=== PATIENT | male | born 1975 | race Asian ===

== ENCOUNTER 2017-05-15 22:08 | Inpatient (IN) | payer OTHER ==
[~2017-05-15] VITALS: Ht 157.5 cm; Wt 47.7 kg
[2017-05-15] MEDS ORDERED: CEFEPIME 2GM/50 ML (PMX) 50 ML IVPB STA (22:13)
[2017-05-15] MEDS ORDERED: SODIUM CHLORIDE 0.9% 1L BAG IV* STA (22:13)
[2017-05-15] MEDS ORDERED: VANCOMYCIN 1 GM (PMX) 250 ML IVPB ONE (22:30)
--- NOTE | 2017-05-15 22:31 | ERA ---
ER Documentation Chief Complaint Date/Time DATE: 05/15/17 TIME: 22:27 Chief Complaint BIBA RA39, ALOC,LOW o2 SAT 82% room air at [facility] Patient is a 42-year-old male history of terminal brain cancer who sent from a [facility] for altered mental status, hypoxia, and fever was noted today. Timing was not specified. History is limited due to patient being unable to provide any details. Per report, the patient has been DNR/DNI, but his status may have been changed today. No documentation available at this time. ROS All systems reviewed and are negative except as per history of present illness. Allergies Allergies: Coded Allergies: No Known Allergy (Unverified , 05/15/17) PMhx/Soc Medical history: Recurrent glioblastoma multiforme A, mental retardation, blindness, Fungal brain infection, osteomyelitis Past surgical history: Craniotomy Social History: Unobtainable FmHx Unable to obtain Physical Exam Vitals Vital Signs Date Time Temp Pulse Resp B/P Pulse Ox O2 Delivery O2 Flow Rate FiO2 05/16/17 05:20 98 21 100 40 05/16/17 05:08 18 110/95 100 Mechanical Ventilator 05/16/17 04:45 98.1 18 111/93 100 Mechanical Ventilator 05/16/17 04:30 18 113/95 100 Mechanical Ventilator 05/16/17 04:15 18 106/93 100 Mechanical Ventilator 05/16/17 04:00 20 110/88 100 Mechanical Ventilator 05/16/17 03:21 97.9 20 112/87 100 Mechanical Ventilator 05/16/17 03:15 100 22 100 40 05/16/17 03:00 101 100 Mechanical Ventilator 05/16/17 02:30 98 14 106/89 100 Mechanical Ventilator 05/16/17 02:00 102 14 105/85 100 Mechanical Ventilator 05/16/17 01:55 117 18 100 60 05/16/17 01:15 99.3 115 25 123/83 100 Non Rebreather 10.0 05/16/17 00:57 116 24 116/89 100 Non Rebreather 10.0 05/16/17 00:56 99.3 113 25 145/111 100 Non Rebreather 10.0 05/16/17 00:26 117 28 143/114 100 Non Rebreather 10.0 05/16/17 00:07 117 34 124/92 100 Non Rebreather 10.0 05/15/17 22:50 124 37 94 Non Rebreather 10.0 05/15/17 22:43 99.5 120 37 109/87 Non Rebreather 10.0 05/15/17 22:43 Non Rebreather 10 05/15/17 22:13 99.5 123 22 105/67 94 Physical Exam Const: Lethargic, Nonverbal, not following commands, poor eye contact, cachectic Head: Atraumatic Eyes: Normal Conjunctiva, no pallor, no icterus. Corneal scarring of right eye. Left pupil midrange. ENT: Normal External Ears, Nose and Mouth. Dry mucous membranes Neck: Full range of motion..~ No meningismus. Resp: Tachypnea, clear to auscultation bilaterally, no wheezes, no rales Cardio: Tachycardia, regular rhythm, no murmurs Abd: Soft, non tender, non distended. Skin: No petechiae or rashes Back: No midline or flank tenderness Ext: No cyanosis, or edema Neur: Lethargic, Spontaneous movement of right arm, dense hemiparesis of left arm. Psych: Unable to assess Result Diagram: 05/15/17222905/15/172229 Results 24 hrs Laboratory Tests Test 05/15/17 22:13 05/15/17 22:30 05/16/17 00:05 05/16/17 00:58 Lactic Acid Level 5.4mmol/L 4.4mmol/L White Blood Count 5.910^3/ul Red Blood Count 5.3510^6/ul Hemoglobin 17.2g/dl Hematocrit 50.0% Mean Corpuscular Volume 93.5fl Mean Corpuscular Hemoglobin 32.1pg Mean Corpuscular Hemoglobin Concent 34.4g/dl Red Cell Distribution Width 14.3% Platelet Count 78262^3/UL Mean Platelet Volume 9.5fl Neutrophils % 80.3% Lymphocytes % 11.8% Monocytes % 6.3% Eosinophils % 0.0% Basophils % 0.9% Nucleated Red Blood Cells % 0.0/100WBC Neutrophils # 4.710^3/ul Lymphocytes # 0.710^3/ul Monocytes # 0.410^3/ul Eosinophils # 0.010^3/ul Basophils # 0.110^3/ul Nucleated Red Blood Cells # 0.010^3/ul Prothrombin Time 12.3Sec Prothrombin Time Ratio 1.0 INR International Normalized Ratio 0.91 Activated Partial Thromboplast Time 33.0Sec Urine Color NIGEL Urine Clarity SLIGHTLY CLOUDY Urine pH 5.0 Urine Specific [place] 1.020 Urine Ketones 2+mg/dL Urine Nitrite NEGATIVEmg/dL Urine Bilirubin 1+mg/dL Urine Urobilinogen 2+mg/dL Urine Leukocyte Esterase 2+Hina/ul Urine Microscopic RBC 5/HPF Urine Microscopic WBC 100/HPF Urine Bacteria FEW/HPF Urine Mucus MANY/HPF Urine Hemoglobin 1+mg/dL Urine Glucose NEGATIVEmg/dL Urine Total Protein 1+mg/dl Sodium Level 136mmol/L Potassium Level 3.8mmol/L Chloride Level 98mmol/L Carbon Dioxide Level 18mmol/L Anion Gap 24 Blood Urea Nitrogen 17mg/dl Creatinine 0.45mg/dl Glucose Level 108mg/dl Calcium Level 9.9mg/dl Total Bilirubin 0.8mg/dl Direct Bilirubin 0.00mg/dl Indirect Bilirubin 0.8mg/dl Aspartate Amino Transf (AST/SGOT) 29IU/L Alanine Aminotransferase (ALT/SGPT) 30IU/L Alkaline Phosphatase 196IU/L Troponin I 0.044ng/ml Total Protein 8.0g/dl Albumin 4.2g/dl Globulin 3.80g/dl Albumin/Globulin Ratio 1.10 Blood Gas Specimen Source Blood arterial Arterial Blood Date Drawn 05/16/2017 1:10:53 AM Arterial Blood pH (Temp corrected) 7.421 Arterial Blood pCO2 (Temp correct) 27.3mmhg Arterial Blood pO2 (Temp corrected) 243.4mmHG Arterial Blood HCO3 17.4mmol/L Arterial Blood Base Excess -5.4mmol/L Arterial Blood Oxygen Saturation 99.3mmHG Marcelino Test N/A Arterial Blood Gas Puncture Site LB Arterial Blood Carboxyhemoglobin 0.3% Arterial Blood Methemoglobin 0.4% Blood Gas A-a O2 Differential 442.3mmHg Oxyhemoglobin Percent 98.6% Total Hemoglobin 15.2g/dl Blood Gas Temperature 37.0C Blood Gas Modality MASK - NRB FiO2 100.0% Blood Gas Notified Whom MM Blood Gas Notified Time 05/16/2017 1:26:55 AM Test 05/16/17 02:28 05/16/17 02:50 Blood Gas Specimen Source Blood arterial Arterial Blood Date Drawn 05/16/2017 2:52:38 AM Arterial Blood pH (Temp corrected) 7.332 Arterial Blood pCO2 (Temp correct) 31.6mmhg Arterial Blood pO2 (Temp corrected) 237.8mmHG Arterial Blood HCO3 16.4mmol/L Arterial Blood Base Excess -8.2mmol/L Arterial Blood Oxygen Saturation 99.2mmHG Marcelino Test ACCEPTAB Arterial Blood Gas Puncture Site Left Radial Arterial Blood Carboxyhemoglobin 0.3% Arterial Blood Methemoglobin 0.5% Blood Gas A-a O2 Differential 155.2mmHg Oxyhemoglobin Percent 98.4% Total Hemoglobin 15.0g/dl Blood Gas Temperature 37.0C Blood Gas Respiration Rate 18.0 Blood Gas Actual Respiration Rate 20 Blood Gas Modality VENT - AC FiO2 60.0% Blood Gas Tidal Volume 400.0mL Blood Gas Low PEEP Setting 5.0cmH2O Blood Gas Inspiratory Pressure 20.0 Blood Gas Notified Whom AA Blood Gas Notified Time 05/16/2017 3:05:48 AM Lactic Acid Level 1.7mmol/L Current Medications Medications (Trade) Dose Ordered Sig/Earl Route PRN Reason Start Time Stop Time Status Last Admin Dose Admin Sodium Chloride 1550 ml 1,550 ml BOLUS OVER 2 HOURS STAT IV* 05/15/17 22:13 05/15/17 22:16 DC 05/15/17 22:51 Cefepime HCl 50 ml @ 100 mls/hr ONCE STAT IVPB 05/15/17 22:13 05/15/17 22:42 DC 05/15/17 23:48 Vancomycin HCl 250 ml @ 125 mls/hr ONCE ONCE IVPB 05/15/17 22:30 05/16/17 00:29 DC 05/16/17 01:25 Fluconazole (Diflucan 400 Mg/ NS (Pmx)) 200 ml @ 100 mls/hr ONCE ONCE IVPB 05/16/17 00:00 05/16/17 01:59 DC 05/16/17 03:15 Dexamethasone 10 mg 10 mg ONCE ONCE IV 05/16/17 00:00 05/16/17 00:01 DC 05/15/17 23:44 Sodium Chloride (Sodium Chloride Iv 3%) 100 ml @ 10 mls/min Q10M IV 05/16/17 00:00 05/16/17 01:00 DC 05/16/17 03:00 Succinylcholine Chloride (Anectine Syringe) 75 mg ONCE ONCE IV 05/16/17 01:00 05/16/17 01:01 DC Etomidate 15 mg 15 mg ONCE ONCE IV 05/16/17 01:00 05/16/17 01:01 DC Propofol 100 ml @ 0 mls/hr TITRATE ONCE IV 05/16/17 01:00 05/16/17 01:01 DC Sodium Chloride (NS) 1,000 ml @ 70 mls/hr [id number] IV 05/16/17 02:32 05/16/17 05:01 Acetaminophen (Tylenol Supp) 650 mg Q4H PRN [place] PAIN LEVEL 1-3 OR FEVER 05/16/17 03:00 Pantoprazole 40 mg 40 mg DAILY@06 IV 05/16/17 06:00 Midazolam HCl (Versed) 50 ml @ 1 mls/hr TITRATE IV 05/16/17 03:00 05/16/17 03:39 Vancomycin HCl VANCOMYCIN PER PHARMACY PER PROTOCOL XX 05/16/17 03:00 Cefepime HCl 50 ml @ 100 mls/hr Q12 IVPB 05/16/17 09:00 Fluconazole 200 ml @ 100 mls/hr Q24H IVPB 05/16/17 03:00 Vancomycin HCl/ Sodium Chloride (Vancocin/NS) 150 ml @ 75 mls/hr Q8H IVPB 05/16/17 09:00 Procedures/MDM EKG read by me: Time 2240, rate 127 Rhythm: Sinus tachycardia [place]: Left axis deviation Intervals: Prolonged QTC ST-T waves: ST depression in inferior and lateral leads Ectopy: No Q-waves: No Impression: ST depression suggestive of ischemia Endotracheal Intubation by me: Pre assessment performed. Pre-oxygenation performed with 100% oxygen RSI: Performed w/o complication or hypoxic events. Medications as ordered, etomidate 15 mg, succinylcholine 75 mg Blade: Mac 4 ET Tube: 7.5 cm Depth: 23 cm at the lip Intubation confirmed by colorimetric CO2, equal breath sounds, quiet over the stomach. Chest X-ray 1V Interpreted by me: cm above the sydni ET tube. Normal soft tissue, No pneumothorax. MDM: Patient is a 42-year-old male with known glioblastoma multiforma who presents to the ER with altered mental status and fever. He is found to have signs of vasogenic edema with herniation on head CT. He was given a dose of hypertonic saline and Decadron. I discussed the case with Dr. Cho, neurosurgery, who will see the patient. The patient is not likely an operative candidate at this time. Septic workup was initiated. Blood and urine cultures were sent. UA was consistent with UTI and chest x-ray suggested possible multifocal pneumonia. The patient was given weight-based IV fluids and broad- spectrum antibiotics. The patient was noted to have significant tachypnea and oxygen requirement of greater than 10 L/min. He also was not protecting his airway well and had large number of secretions. I had extensive discussion with family regarding CODE STATUS, and they initially wanted him to be DNR/DNI, but they changed their mind and made him full code. I emphasized that the patient had a very poor prognosis and would likely not be able to come off of ventilator, but they stated that they wanted the patient to get full treatment. The patient was therefore intubated for respiratory distress and poor airway protection. He will be admitted to the ICU for further workup and care. I will attempt to mildly hyperventilate him with a target pCO2 of 35. Critical Care Time: 36 minutes Treatments/Evaluations: Close monitoring and treatment of unstable vital signs, cardiorespiratory, and neurologic status, while maintaining tight balance of fluid, respiratory, and cardiac interventions. This time includes discussing the case with the patient and the patient's family. This time does not include all procedures stated elsewhere in this record. This time also includes reviewing old records, labs and radiological studies. This time includes examining and re-examining the patient. Additionally, this time also includes arranging care with admitting and consulting physicians. Departure Diagnosis: Primary Impression: Severe sepsis Additional Impressions: Respiratory distress Pneumonia Qualified Code: J18.9 - Pneumonia due to infectious organism, unspecified laterality, unspecified part of lung UTI (urinary tract infection) Qualified Code: N39.0 - Urinary tract infection without hematuria, site unspecified Cerebral herniation GBM (glioblastoma multiforme) Altered mental status Qualified Code: R40.2431 - [place] coma scale total score 3-8, in the field ( EMT or ambulance) Condition: Serious GINA CUMMINS MD May 15, 2017 22:31
[2017-05-15 22:58] LABS: BASOPHIL # 0.1 10^3/ul (0.0-0.1); BASOPHILS % 0.9 % (0.0-2.0); HEMOGLOBIN 17.2 g/dl (14.0-18.0); LYMPHOCYTES # 0.7 10^3/ul (0.8-2.9); LYMPHOCYTES % 11.8 % (15.0-51.0); MEAN CORPUSCULAR HEMOGLOBIN 32.1 pg (29.0-33.0); MEAN CORPUSCULAR HGB CONC 34.4 g/dl (32.0-37.0); MEAN CORPUSCULAR VOLUME 93.5 fl (82.0-101.0); MEAN PLATELET VOLUME 9.5 fl (7.4-10.4); MONOCYTE # 0.4 10^3/ul (0.3-0.9); MONOCYTES % 6.3 % (0.0-11.0); NEUTROPHIL # 4.7 10^3/ul (1.6-7.5); NEUTROPHILS % 80.3 % (39.0-77.0); PLATELET COUNT 604 10^3/UL (140-415); RED BLOOD COUNT 5.35 10^6/ul (4.70-6.10); RED CELL DISTRIBUTION WIDTH 14.3 % (11.5-14.5); WHITE BLOOD COUNT 5.9 10^3/ul (4.8-10.8)
[2017-05-15 23:22] LABS: ALBUMIN 4.2 g/dl (3.3-4.9); ALBUMIN/GLOBULIN RATIO 1.1; BILIRUBIN,INDIRECT 0.8 mg/dl (0-1.1); BILIRUBIN,TOTAL 0.8 mg/dl (0.2-1.3); CALCIUM 9.9 mg/dl (8.4-10.2); CREATININE 0.45 mg/dl (0.61-1.24); POTASSIUM 3.8 mmol/L (3.5-5.1)
[2017-05-15 23:33] LABS: TROPONIN-I 0.044 ng/ml (0.00-0.12)
[2017-05-15 23:38] LABS: INR 0.91; PROTIME 12.3 Sec (12.2-14.2)
--- NOTE | 2017-05-15 23:39 | RADRPT ---
PROCEDURE: Noncontrast CT Head. CLINICAL INDICATION: Pain. TECHNIQUE: Noncontrast CT of the head was obtained. The administered radiation dose was CTDI vol = 45 mGy, DLP = 810 mGy-cm. One or more of the following dose reduction techniques were used: automate d exposure control, adjustment of the mA and/or kV according to patient size and/or use of iterative reconstruction technique. COMPARISON: No pertinent prior examinations were submitted for comparison. FINDINGS: Prior right pterional craniectomy is noted with placement of a mesh. Extensive vasogenic edema is se en throughout the right supratentorial white matter. Some wallerian degeneration or additional edema extends into the brainstem. There is mass effect with subfalcine herniation. This causes 12 mm of midline shift to the left. The re is enlargement of the left lateral and third ventricles with some effacement of the right lateral ventricle. This is presumably due to ventricular entrapment. There is no evidence of acute intracranial hemorrhage. There is no loss of the tadeo-white differenti ation to suggest an acute territorial infarct. The orbits are within normal limits. The paranasal sinuses and mastoid air cells are without fluid. No destructive osseous lesion is identified. IMPRESSION: Extensive right hemispheric vasogenic edema with associated subfalcine herniation and ventricular en trapment presumably due to underlying tumor. Correlation with any known history or previous examinat ions is recommended. MRI of the brain with contrast may be indicated. Findings were discussed with Dion Hampton at approximately 05/15/2017 11:35:44 PM. RPTAT: HIKT .Marty Yee MD, Date Time Electronically viewed and signed by .Marty Yee MD, MD on 05/15/2017 23:39 .T/
--- NOTE | 2017-05-15 23:47 | RADRPT ---
PROCEDURE: Portable chest x-ray. CLINICAL INDICATION: Sepsis. TECHNIQUE: Portable AP view of the chest. COMPARISON: None. FINDINGS: There are patchy bilateral perihilar opacities. The cardiac silhouette is magnified. No pleural ef fusion is seen. There is no pneumothorax. Surgical clips project over the superomedial right chest . IMPRESSION: 1. Patchy bilateral perihilar opacities, possibly representing pulmonary edema or multifocal pneumo surjit. RPTAT: HTAR .Hermes Collins MD, MD Date Time Electronically viewed and signed by .Hermes Collins MD, MD on 05/15/2017 23:47 .R/
[2017-05-15 23:55] LABS: ADD UMIC YES; UR ASCORBIC ACID NEGATIVE (NEGATIVE); UR BACTERIA FEW /HPF (NONE SEEN); UR BILIRUBIN (Dip) 1+ mg/dL (NEGATIVE); UR BLOOD (Dip) 1+ mg/dL (NEGATIVE); UR CLARITY SLIGHTLY CLOUDY (CLEAR); UR COLOR AMBER (YELLOW); UR GLUCOSE (Dip) NEGATIVE (NEGATIVE); UR KETONES (Dip) 2+ mg/dL (NEGATIVE); UR LEUKOCYTE ESTERASE (Dip) 2+ Leu/ul (NEGATIVE); UR MUCUS MANY /HPF (NONE SEEN); UR NITRITE (Dip) NEGATIVE (NEGATIVE); UR RBC 5 /HPF (0-5); UR TOTAL PROTEIN (Dip) 1+ mg/dl (NEGATIVE); UR UROBILINOGEN (Dip) 2+ mg/dL (NEGATIVE)
[2017-05-16] VITALS (29 sets, daily range): BP systolic 97–123; BP diastolic 74–98; PULSE 95–115; RESP 6–40; TEMP 97; Ht 157.5 cm; Wt 47.7 kg
[2017-05-16] MEDS ORDERED: DEXAMETHASONE 10 MG/ML 1 ML INJ IV ONE
[2017-05-16] MEDS ORDERED: FLUCONAZOLE 400 MG/NS (PMX) 200 ML IVPB ONE
[2017-05-16] MEDS: NACL 3% 100 ML IV SCH ×7 (00:10→03:00)
[2017-05-16] MEDS ORDERED: ETOMIDATE 20 MG INJ IV ONE (01:00)
[2017-05-16] MEDS ORDERED: PROPOFOL 100 ML IV ONE (01:00)
[2017-05-16] MEDS ORDERED: SUCCINYLCHOLINE CHLORIDE 100 MG/5 ML SYG IV ONE (01:00)
[2017-05-16 01:30] LABS: AADO2 Arterial 442.3 mmHg (7.0-24.0); Arterial Base Excess -5.4 mmol/L (-3.0-3); Arterial COHb 0.3 % (0.0-3.0); Arterial Fraction of Oxyhgb 98.6 % (93.0-99.0); Arterial HCO3 17.4 mmol/L (22.0-26.0); Arterial MetHb 0.4 % (0.0-1.5); Arterial Total Hemglobin 15.2 g/dl (12.0-18.0); MODE MASK - NRB
[2017-05-16] MEDS ORDERED: ACETAMINOPHEN 650 MG SUPP PR PRN (03:00)
[2017-05-16] MEDS: FLUCONAZOLE 400 MG/NS (PMX) 200 ML IVPB SCH (03:00)
[2017-05-16] MEDS ORDERED: VANCOMYCIN IV PER PHARMACY XX SCH (03:00)
[2017-05-16 03:07] LABS: AADO2 Arterial 155.2 mmHg (7.0-24.0); Allen Test ACCEPTAB; Arterial Base Excess -8.2 mmol/L (-3.0-3); Arterial COHb 0.3 % (0.0-3.0); Arterial Fraction of Oxyhgb 98.4 % (93.0-99.0); Arterial HCO3 16.4 mmol/L (22.0-26.0); Arterial MetHb 0.5 % (0.0-1.5); MODE VENT - AC
[2017-05-16] MEDS: MIDAZOLAM (DRIP) 50 mg/50 mL 50 ML IV SCH (03:39)
--- NOTE | 2017-05-16 03:51 | RADRPT ---
PROCEDURE: XR Chest. CLINICAL INDICATION: Post intubation, NG tube placement TECHNIQUE: AP Portable chest. COMPARISON: 05/15/2017 FINDINGS: The endotracheal tube is 4 cm above the sydni. The nasogastric tube is in the proximal stomach with the side port near the GE junction.. The cardiomediastinal silhouette is normal. The aorta is normal. The lungs are hyperinflated. No pne umothorax is seen. Bilateral perihilar opacities are similar in appearance. The costophrenic angles are blunted. The osseous structures are intact. IMPRESSION: ET tube in satisfactory position. NG tube sideport near the GE junction. Bilateral perihilar opacities and trace pleural effusions, no significant change. Physician Caleb Date Time Electronically viewed and signed by Physician Caleb on 05/16/2017 03:51 CS/
[2017-05-16] MEDS: SOD CHLORIDE 0.9% 1,000 ML IV SCH ×2 (05:01→16:10)
[2017-05-16] MEDS: PANTOPRAZOLE 40 MG INJ IV SCH (07:53)
[2017-05-16] MEDS: CEFEPIME 2GM/50 ML (PMX) 50 ML IVPB SCH ×2 (08:36→22:50)
[2017-05-16] MEDS: VANCOMYCIN 750 MG in SOD CHLORIDE 0.9% 150 ML IVPB SCH ×2 (09:00→18:24)
--- NOTE | 2017-05-16 09:09 | HP ---
Date/Time of Note Date/Time of Note DATE: 05/16/17 TIME: 08:53 Assessment/Plan VTE Prophylaxis VTE Prophylaxis Intervention: SCD's Lines/Catheters Urinary Cath still in place: Yes Reason Cath still needed: terminal illness/intractable pain Assessment/Plan Chief Complaint/Hosp Course This is a 42-year-old male being admitted to the ICU floor for: #1 Ventilatory dependent respiratory failure: Multifactorial secondary to underlying pneumonia and GBM. Continue respiratory support serial ABGs vent settings as per pulmonary. #2 Septic shock secondary to underlying pneumonia and UTI. Await cultures. Broad-spectrum antibiotics. IV fluid hydration. Serial lactates. Initial lactate 5.4. #3 Glioblastoma multiforme. CAT scan showed Extensive right hemispheric vasogenic edema with associated subfalcine herniation and ventricular entrapment presumably due to underlying tumor. Correlation with any known history or previous examinations is recommended. MRI of the brain with contrast may be indicated. Patient is unlikely a surgical candidate, neurosurgery consulted via the ED will await recommendations. #4 aspiration syndrome: Patient currently intubated, aspiration precautions. #5 Pneumonia: patient is an a congregate facility, will treat with broad spectrum abx as per #2 #6 UTI: await cultures, currently on abx as per #2. #5 mental retardation: Unable to assess secondary to patient being intubated. #6 DVT and GI prophylaxis: SCDs, Protonix Further treatment strategy will be implemented as per the clinical course. Patient will likely benefit from a palliative care consult as well as a family meeting. Patient's overall prognosis is very poor and I do feel that aggressive treatment will be futile. Patient most likely will benefit from being on hospice care, and at the minimum being a DNR. Problems: HPI/ROS Admit Date/Time Admit Date/Time Hx of Present Illness cc: ams, hypoxia, fver. Patient is a 42-year-old male history of terminal brain cancer who [facility] status, hypoxia, and fever was noted today. History was obtained from the ED physician and ER documentation. History is limited due to patient being unable to provide any details. The following was obtained from the ED physician documentation patient is a 42- year-old male with known glioblastoma multiforma who presents to the ER with altered mental status and fever. He is found to have signs of vasogenic edema with herniation on head CT. He was given a dose of hypertonic saline and Decadron. I discussed the case with Dr. Cho, neurosurgery, who will see the patient. The patient is not likely an operative candidate at this time. Septic workup was initiated. Blood and urine cultures were sent. UA was consistent with UTI and chest x-ray suggested possible multifocal pneumonia. Antibiotic started. The patient was noted to have significant tachypnea and oxygen requirement of greater than 10 L/min. He also was not protecting his airway well and had large number of secretions. The ED physician had an extensive discussion with family regarding CODE STATUS, and they initially wanted him to be DNR/DNI, but they changed their mind and made him full code. It was emphasized that the patient had a very poor prognosis and would likely not be able to come off of ventilator, but they stated that they wanted the patient to get full treatment. The patient was therefore intubated for respiratory distress and poor airway protection. Allergies: NKDA Medications: See MAR ROS Subjective hx not possible: pt non-verbal, pt critical PMH/Family/Social Past Medical History Glioblastoma multiform, aspiration syndrome, left cataract, right blindness, left-sided weakness Past Surgical History Craniotomy, titanium cranioplasty Family History Significant Family History: other (Unknown secondary to patient not being able to provide history) Social History Unknown secondary to patient not being able to provide history Smoking Status: Never smoker Exam/Review of Systems Vital Signs Vitals Vital Signs Date Time Temp Pulse Resp B/P Pulse Ox O2 Delivery O2 Flow Rate FiO2 05/16/17 08:13 96.2 98 18 100/86 100 Mechanical Ventilator 05/16/17 05:20 40 05/16/17 01:15 10.0 Intake and Output 05/15/17 05/15/17 05/16/17 15:00 23:00 07:00 Output Total 200 ml Balance -200 ml Exam Exam General: Patient is obtunded, on the ventilator, nonresponsive. Patient is severely frail and cachectic appearing HEENT: Right sided school sutures noted, ET tube in place, Corneal scarring of right eye. Left pupil midrange Neck: Supple. Lungs: Coarse breath sounds throughout bilateral lung jo Heart: Sinus tachycardia Abdomen: Soft , nontender, nondistended , bowel sounds are present. No guarding no rebound tenderness , Extremities: Normal to inspection, no edema no cyanosis Neurologic: Unable to assess as patient is intubated and obtunded, some movement of the right arm seen however now able to assess neurological exam secondary to patient condition. Additional Comments EKG read by me: Time 2240, rate 127 Rhythm: Sinus tachycardia [place]: Left axis deviation Intervals: Prolonged QTC ST-T waves: ST depression in inferior and lateral leads Ectopy: No Q-waves: No Impression: ST depression suggestive of ischemia As per ED physician documentation PROCEDURE: XR Chest. CLINICAL INDICATION: Post intubation, NG tube placement TECHNIQUE: AP Portable chest. COMPARISON: 05/15/2017 FINDINGS: The endotracheal tube is 4 cm above the sdyni. The nasogastric tube is in the proximal stomach with the side port near the GE junction.. The cardiomediastinal silhouette is normal. The aorta is normal. The lungs are hyperinflated. No pneumothorax is seen. Bilateral perihilar opacities are similar in appearance. The costophrenic angles are blunted. The osseous structures are intact. IMPRESSION: ET tube in satisfactory position. NG tube sideport near the GE junction. Bilateral perihilar opacities and trace pleural effusions, no significant change. Physician Caleb Date Time Electronically viewed and signed by Physician Caleb on 05/16/2017 03: 51 CS/ CC: DION CUMMINS MD PROCEDURE: Noncontrast CT Head. CLINICAL INDICATION: Pain. TECHNIQUE: Noncontrast CT of the head was obtained. The administered radiation dose was CTDI vol = 45 mGy, DLP = 810 mGy-cm. One or more of the following dose reduction techniques were used: automated exposure control, adjustment of the mA and/or kV according to patient size and/or use of iterative reconstruction technique. COMPARISON: No pertinent prior examinations were submitted for comparison. FINDINGS: Prior right pterional craniectomy is noted with placement of a mesh. Extensive vasogenic edema is seen throughout the right supratentorial white matter. Some wallerian degeneration or additional edema extends into the brainstem. There is mass effect with subfalcine herniation. This causes 12 mm of midline shift to the left. There is enlargement of the left lateral and third ventricles with some effacement of the right lateral ventricle. This is presumably due to ventricular entrapment. There is no evidence of acute intracranial hemorrhage. There is no loss of the tadeo-white differentiation to suggest an acute territorial infarct. The orbits are within normal limits. The paranasal sinuses and mastoid air cells are without fluid. No destructive osseous lesion is identified. IMPRESSION: Extensive right hemispheric vasogenic edema with associated subfalcine herniation and ventricular entrapment presumably due to underlying tumor. Correlation with any known history or previous examinations is recommended. MRI of the brain with contrast may be indicated. Findings were discussed with Dion Hampton at approximately 05/15/2017 11: 35:44 PM. RPTAT: HIKT .Marty Yee MD, MD Date Time Electronically viewed and signed by .Marty Yee MD, MD on 05/15/2017 23:39 .T/ CC: DION CUMMINS MD Labs Result Diagram: 05/15/17222905/15/172229 Medications Medications Current Medications Sodium Chloride (NS) 1,000 ml @ 70 mls/hr [id number] IV Last administered on 05/16 05:01; Admin Dose 70 MLS/HR; Start 05/16/17 at 02:32 Acetaminophen (Tylenol Supp) 650 mg Q4H PRN [place] PAIN LEVEL 1-3 OR FEVER; Start 05/16/17 at 03:00 Pantoprazole 40 mg 40 mg DAILY@06 IV Last administered on 05/16/17 07:53; Admin Dose 40 MG; Start 05/16/17 at 06:00 Midazolam HCl 50 ml @ 1 mls/hr TITRATE IV Last administered on 05/16/17 03:39 ; Admin Dose 1 MLS/HR; Start 05/16/17 at 03:00 Cefepime HCl 50 ml @ 100 mls/hr Q12 IVPB Last administered on 05/16/17 08:36 ; Admin Dose 100 MLS/HR; Start 05/16/17 at 09:00 Fluconazole 200 ml @ 100 mls/hr Q24H IVPB ; Start 05/16/17 at 03:00 Vancomycin HCl/ Sodium Chloride (Vancocin/NS) 150 ml @ 75 mls/hr Q8H IVPB ; Start 05/16/17 at 09:00 [place] DOLL May 16, 2017 09:03
[2017-05-16] MEDS ORDERED: DOCU-159 PO (10:59)
[2017-05-16] MEDS ORDERED: BACITUD TOP (11:01)
[2017-05-16] MEDS ORDERED: PANT40TA4 PO (11:03)
[2017-05-16] MEDS ORDERED: SIMV10TA PO (11:03)
[2017-05-16] MEDS ORDERED: ASPI-664 PO (11:03)
[2017-05-16] MEDS ORDERED: DEXA2TAB5 PO (11:04)
[2017-05-16] MEDS ORDERED: PHEN200C PO (11:08)
[2017-05-16] MEDS ORDERED: LEVE-5 PO (11:10)
[2017-05-16] MEDS ORDERED: HYDR-906 PO (11:12)
[2017-05-16] MEDS: DEXAMETHASONE 4 MG/ML 1 ML INJ IV SCH ×2 (12:34→17:58)
--- NOTE | 2017-05-16 13:14 | CONS ---
DATE OF ADMISSION: 05/16/2017 DATE OF CONSULTATION: 05/16/2017 INFECTIOUS DISEASE CONSULTATION REASON FOR CONSULTATION: Antibiotic management. HISTORY OF PRESENT ILLNESS: Shane Bass is a 42-year-old male with a history of terminal brain cancer who was sent to the emergency room with altered mental status, hypoxia, and fever. The patient has glioblastoma multiforme, presented to the ER with altered mental status and fever. He has vasogenic edema with herniation on head CT. Patient was given a dose of hypertonic saline and Decadron. The case was discussed with Dr. Cho, the neurosurgeon, but it does not seem as is he is an operative candidate at this point. Septic workup was initiated. Blood and urine cultures were sent. A chest x-ray was done, which suggested multifocal pneumonia. Patient was tachycardic, was placed on oxygen. He had increased secretions. He was initially a DNR, but the family changed their mind and made him a full code. He was, therefore, intubated for respiratory distress and poor airway protection. PAST MEDICAL HISTORY: Includes glioblastoma multiforme, aspiration pneumonia, left cataract surgery, right eye blindness, left-sided weakness. He had a craniotomy and a titanium cranioplasty. DIAGNOSTIC DATA: On admission, a chest x-ray was done, which showed ET in satisfactory position. He has an NG tube near the GE junction, bilateral perihilar opacities, trace pleural effusion. A CT scan showed extensive right hemispheric vasogenic edema with associated subfalcine herniation and ventricular entrapment, presumably due to the underlying tumor. His white count was 5.9, hemoglobin 17.2 and hematocrit 50, platelet count 604,000. BUN 17 and creatinine 0.45. Lactic acid is 5.4 and 4.4. Urine is positive for 2+ leukocyte esterase and 100 white cells per high-power field, consistent with urinary tract infection. Patient was begun on vancomycin and cefepime as well as fluconazole. PAST MEDICAL HISTORY: Operations as outlined. FAMILY HISTORY: Noncontributory. SOCIAL HISTORY: He does not smoke, drink, or abuse drugs. ALLERGIES: NONE TO PENICILLIN, SULFA, OR FOODS. MEDICATION: Per chart. REVIEW OF SYSTEMS: As per HPI. PHYSICAL EXAMINATION: GENERAL: Patient is an cachectic-appearing male who is intubated on a respirator. VITAL SIGNS: Stable. He is afebrile. SKIN: Without generalized rash. HEENT: He has an ET tube and an NG tube. He has right corneal scarring. Left pupil is mid-range. NECK: Supple. Lymph nodes nonpalpable. CHEST: Decreased breath sounds at the bases. HEART: Without murmur or gallop. ABDOMEN: Soft, nontender, without organosplenomegaly or masses. EXTREMITIES: Without cyanosis, clubbing, or edema. RECTAL/GENITAL: Exams deferred. NEUROLOGICAL: We are unable to assess as he is intubated and obtunded. IMPRESSION AND PLAN: The patient is an unfortunate, 42-year-old male with a fatal disease, glioblastoma multiforme. He was intubated at the request of the family. He has a clear-cut urinary tract infection and is a good candidate for aspiration pneumonia, and that is why he was intubated. He has urinary tract infection (UTI) with probable septic shock secondary to this as well as possible pneumonia. He has bilateral perihilar opacities. We will continue vancomycin and cefepime. I will dictate my findings to the hospitalist. Dictated By: Yony Shell MD JD/farida/[facility] /Document#: [id number]
[2017-05-16] MEDS ORDERED: PROPOFOL 100 ML ONE (17:47)
[2017-05-16] MEDS: PROPOFOL 100 ML IV SCH (18:00)
--- NOTE | 2017-05-16 22:22 | CONS ---
Date/Time of Note Date/Time of Note DATE: 05/16/17 TIME: 22:06 Assessment/Plan Assessment/Plan Problems: (1) GBM (glioblastoma multiforme) Status: Acute Comment: Unfortunate 42 year old with GBM, recurrent, complicated by fungal infection, now presenting with UTI/URI and altered MS 2 to cerebral edema. I spoke via telephone with the patient's sister Emmy, who is DPOA, regarding the imaging findings and patient's neurologic status. She understands neurologic prognosis is poor. She would like to continue with maximal medical treatments, including supportive ICU care, but is refusing any further surgical intervention. I spoke with the patient's primary neurosurgeon (Dr. Yunior Stinson) who stated that the patient's family had previously also refused further surgery (including both tumor removal and VPS). Since patient's family is refusing surgical intervention, I will follow as needed. Thank you. Consultation Date/Type/Reason Admit Date/Time Date of Consultation: May 16, 2017 Type of Consultation: neurosurgery Reason for Consultation recurrent brain tumor Hx of Present Illness 42 year old male with developmental delay and hx of craniotomy at [facility] in November 2016, complicated by wound infection and removal of bone flap in February. He has completed XRT and is getting temodar. He was transferred to ER from SNF for hypoxia and altered level of consciousness... CT in ER shows massive tumor with midline shift and uncal herniation. Social History Smoking Status: Never smoker Exam/Review of Systems Vital Signs Vitals Vital Signs Date Time Temp Pulse Resp B/P Pulse Ox O2 Delivery O2 Flow Rate FiO2 05/16/17 17:32 101 28 98 30 05/16/17 17:00 104/86 05/16/17 16:30 Mechanical Ventilator 05/16/17 16:00 97.3 05/16/17 01:15 10.0 Intake and Output 05/15/17 05/15/17 05/16/17 15:00 23:00 07:00 Output Total 200 ml Balance -200 ml Exam [id number] localizes R UE flaccid on left R eye opaque Left pupil 2mm min reactive Results Result Diagram: 05/15/17222905/15/172229 Results 24 hrs Laboratory Tests Test 05/15/17 22:13 05/15/17 22:30 05/16/17 00:05 05/16/17 00:58 Lactic Acid Level 5.4 *H 4.4 *H White Blood Count 5.9 Red Blood Count 5.35 Hemoglobin 17.2 Hematocrit 50.0 Mean Corpuscular Volume 93.5 Mean Corpuscular Hemoglobin 32.1 Mean Corpuscular Hemoglobin Concent 34.4 Red Cell Distribution Width 14.3 Platelet Count 604 H Mean Platelet Volume 9.5 Neutrophils % 80.3 H Lymphocytes % 11.8 L Monocytes % 6.3 Eosinophils % 0.0 Basophils % 0.9 Nucleated Red Blood Cells % 0.0 Neutrophils # 4.7 Lymphocytes # 0.7 L Monocytes # 0.4 Eosinophils # 0.0 Basophils # 0.1 Nucleated Red Blood Cells # 0.0 Prothrombin Time 12.3 Prothrombin Time Ratio 1.0 INR International Normalized Ratio 0.91 Activated Partial Thromboplast Time 33.0 Urine Color NIGEL Urine Clarity SLIGHTLY CLOUDY A Urine pH 5.0 Urine Specific [place] 1.020 Urine Ketones 2+ H Urine Nitrite NEGATIVE Urine Bilirubin 1+ H Urine Urobilinogen 2+ H Urine Leukocyte Esterase 2+ H Urine Microscopic RBC 5 Urine Microscopic WBC 100 H Urine Bacteria FEW A Urine Mucus MANY A Urine Hemoglobin 1+ H Urine Glucose NEGATIVE Urine Total Protein 1+ H Sodium Level 136 Potassium Level 3.8 Chloride Level 98 Carbon Dioxide Level 18 L Anion Gap 24 H Blood Urea Nitrogen 17 Creatinine 0.45 L Glucose Level 108 Calcium Level 9.9 Total Bilirubin 0.8 Direct Bilirubin 0.00 Indirect Bilirubin 0.8 Aspartate Amino Transf (AST/SGOT) 29 Alanine Aminotransferase (ALT/SGPT) 30 Alkaline Phosphatase 196 H Troponin I 0.044 Total Protein 8.0 Albumin 4.2 Globulin 3.80 H Albumin/Globulin Ratio 1.10 Blood Gas Specimen Source Blood arterial Arterial Blood Date Drawn 05/16/2017 1:10:53 AM Arterial Blood pH (Temp corrected) 7.421 Arterial Blood pCO2 (Temp correct) 27.3 L Arterial Blood pO2 (Temp corrected) 243.4 H Arterial Blood HCO3 17.4 L Arterial Blood Base Excess -5.4 L Arterial Blood Oxygen Saturation 99.3 H Marcelino Test N/A Arterial Blood Gas Puncture Site LB Arterial Blood Carboxyhemoglobin 0.3 Arterial Blood Methemoglobin 0.4 Blood Gas A-a O2 Differential 442.3 H Oxyhemoglobin Percent 98.6 Total Hemoglobin 15.2 Blood Gas Temperature 37.0 Blood Gas Modality MASK - NRB FiO2 100.0 Blood Gas Notified Whom MM Blood Gas Notified Time 05/16/2017 1:26:55 AM Test 05/16/17 02:28 05/16/17 02:50 Blood Gas Specimen Source Blood arterial Arterial Blood Date Drawn 05/16/2017 2:52:38 AM Arterial Blood pH (Temp corrected) 7.332 L Arterial Blood pCO2 (Temp correct) 31.6 L Arterial Blood pO2 (Temp corrected) 237.8 H Arterial Blood HCO3 16.4 L Arterial Blood Base Excess -8.2 L Arterial Blood Oxygen Saturation 99.2 H Marcelino Test ACCEPTAB Arterial Blood Gas Puncture Site Left Radial Arterial Blood Carboxyhemoglobin 0.3 Arterial Blood Methemoglobin 0.5 Blood Gas A-a O2 Differential 155.2 H Oxyhemoglobin Percent 98.4 Total Hemoglobin 15.0 Blood Gas Temperature 37.0 Blood Gas Respiration Rate 18.0 Blood Gas Actual Respiration Rate 20 Blood Gas Modality VENT - AC FiO2 60.0 Blood Gas Tidal Volume 400.0 Blood Gas Low PEEP Setting 5.0 Blood Gas Inspiratory Pressure 20.0 Blood Gas Notified Whom AA Blood Gas Notified Time 05/16/2017 3:05:48 AM Lactic Acid Level 1.7 Medications Medications Current Medications Acetaminophen (Tylenol Supp) 650 mg Q4H PRN [place] PAIN LEVEL 1-3 OR FEVER; Start 05/16/17 at 03:00 Pantoprazole 40 mg 40 mg DAILY@06 IV Last administered on 05/16/17 07:53; Admin Dose 40 MG; Start 05/16/17 at 06:00 Midazolam HCl 50 ml @ 1 mls/hr TITRATE IV Last administered on 05/16/17 03:39 ; Admin Dose 1 MLS/HR; Start 05/16/17 at 03:00 Cefepime HCl 50 ml @ 100 mls/hr Q12 IVPB Last administered on 05/16/17 08:36 ; Admin Dose 100 MLS/HR; Start 05/16/17 at 09:00 Fluconazole 200 ml @ 100 mls/hr Q24H IVPB ; Start 05/16/17 at 03:00 Vancomycin HCl/ Sodium Chloride (Vancocin/NS) 150 ml @ 75 mls/hr Q8H IVPB Last administered on 05/16/17 18:24; Admin Dose 75 MLS/HR; Start 05/16/17 at 09 :00 Dexamethasone (Decadron) 4 mg Q6 IV Last administered on 05/16/17 17:58; Admin Dose 4 MG; Start 05/16/17 at 12:00 Miscellaneous Information VANCOMYCIN TROUGH AT 0000 ONCE ONCE XX ; Start 05/17/17 at 00:00; Stop 05/17/17 at 00:01 Propofol (Diprivan) 100 ml @ 1.431 mls/ hr Q12H IV Last administered on 18:00; Admin Dose 8.586 MLS/HR; Start 05/16/17 at 18:00 AIXA LEMONS MD May 16, 2017 22:16
[2017-05-17] VITALS (60 sets, daily range): BP systolic 100–143; BP diastolic 77–103; PULSE 71–102; RESP 18–26
[2017-05-17] MEDS: DEXAMETHASONE 4 MG/ML 1 ML INJ IV SCH ×5 (01:47→21:17)
[2017-05-17] MEDS: VANCOMYCIN 750 MG in SOD CHLORIDE 0.9% 150 ML IVPB SCH ×2 (04:28→09:05)
[2017-05-17] MEDS: FLUCONAZOLE 400 MG/NS (PMX) 200 ML IVPB SCH (05:38)
[2017-05-17 06:07] LABS: HEMATOCRIT 36.6 % (42.0-52.0); HEMOGLOBIN 11.8 g/dl (14.0-18.0); LYMPHOCYTES # 0.6 10^3/ul (0.8-2.9); LYMPHOCYTES % 6.7 % (15.0-51.0); MEAN CORPUSCULAR HEMOGLOBIN 31.3 pg (29.0-33.0); MEAN CORPUSCULAR HGB CONC 32.2 g/dl (32.0-37.0); MEAN CORPUSCULAR VOLUME 97.1 fl (82.0-101.0); MEAN PLATELET VOLUME 11.2 fl (7.4-10.4); MONOCYTE # 0.4 10^3/ul (0.3-0.9); MONOCYTES % 4.2 % (0.0-11.0); NEUTROPHIL # 7.9 10^3/ul (1.6-7.5); NEUTROPHILS % 88.5 % (39.0-77.0); POSITIVE DIFF @See below; RED BLOOD COUNT 3.77 10^6/ul (4.70-6.10); RED CELL DISTRIBUTION WIDTH 14.6 % (11.5-14.5); WHITE BLOOD COUNT 8.9 10^3/ul (4.8-10.8)
[2017-05-17] MEDS: PROPOFOL 100 ML IV SCH ×2 (06:16→17:44)
[2017-05-17] MEDS: PANTOPRAZOLE 40 MG INJ IV SCH (06:16)
[2017-05-17 06:30] LABS: PLATELET COUNT 236 10^3/UL (140-415)
[2017-05-17 06:43] LABS: CREATININE 0.35 mg/dl (0.61-1.24); POTASSIUM 4.2 mmol/L (3.5-5.1)
[2017-05-17] MEDS: CEFEPIME 2GM/50 ML (PMX) 50 ML IVPB SCH (09:05)
[2017-05-17] MEDS ORDERED: MEROPENEM 2 GM in SOD CHLORIDE 0.9% 100 ML IVPB SCH (12:00)
[2017-05-17] MEDS: MEROPENEM 500MG/50 ML (PMX) 50 ML IVPB SCH ×2 (12:17→21:17)
[2017-05-17] MEDS ORDERED: LIDOCAINE 1% (MPF) 5 ML VIAL SC ONE (13:00)
--- NOTE | 2017-05-17 13:00 | PN ---
DATE: 05/17/2017 SUBJECTIVE DATA: The patient remains intubated, sedated, and afebrile. OBJECTIVE DATA: VITAL SIGNS: Temperature 97.6, pulse 80, respirations 18, blood pressure 118/85, and saturation 100 on vent. LABORATORY AND DIAGNOSTIC DATA: WBC 8.9, H and H 11.8 and 36.6, platelets 236,000, neutrophils 88.5. BUN 19, creatinine 0.35. Lactic acid yesterday went down to 4.4. MICROBIOLOGY: Blood cultures remain negative. Urine culture growing multidrug resistant E coli ESBL. ANTIMICROBIALS: Patient is on IV vancomycin and meropenem started this morning, status post cefepime. He is also on Decadron. DIAGNOSTICS: Chest x-ray from yesterday revealed bilateral perihilar opacity and trace pleural effusions. CT of the brain on admission revealed extensive right hemispheric vasogenic edema with associated sub herniation and ventricular entrapment presumably due to underlying tumor. PHYSICAL EXAMINATION: GENERAL: This is a cachectic, middle-aged man, who is in no distress. HEENT: Head atraumatic, normocephalic. Sclerae anicteric. Buccal mucosa dry. NECK: Supple. Trachea midline. CHEST: Rise symmetrical. Breath sounds diminished at the bases. HEART: S1, S2. ABDOMEN: Soft, bowel sounds hypoactive. EXTREMITIES: Without cyanosis. SKIN: With multiple bumps. The patient has a large movable mass on his coccyx area. ASSESSMENT: 1. Sepsis. 2. Escherichia coli extended-spectrum beta-lactamase (ESBL) urinary tract infection. 3. Aspiration pneumonia, possibly healthcare associated. 4. Acute encephalopathy with evidence of vasogenic edema with herniation per CT of the brain. 5. Glioblastoma multiforme. 6. History of craniotomy and titanium cranioplasty. 7. Severe cachexia. PLAN: 1. The patient is hemodynamically stable on appropriate antibiotics. 2. Followed by Neurosurgery. 3. He is full code. 4. Continue present care. Dictated By: Rosibel Ramos NP /farida/jeevan /Document#: [id number]
[2017-05-17] MEDS ORDERED: MEROPENEM 1 GM/50ML(PMX) 50 ML IVPB SCH (14:00)
--- NOTE | 2017-05-17 14:07 | PN ---
Date/Time of Note Date/Time of Note DATE: 05/17/17 TIME: 14:01 Assessment/Plan VTE Prophylaxis VTE Prophylaxis Intervention: SCD's Lines/Catheters IV Catheter Type (from Nrs): Peripheral IV Assessment/Plan Chief Complaint/Hosp Course #1 Ventilatory dependent respiratory failure: Multifactorial secondary to underlying pneumonia and GBM. Continue respiratory support serial ABGs vent settings as per pulmonary. #2 Septic shock secondary to underlying pneumonia and UTI. Urine culture shows ESBL E. coli ID on the case, continue meropenem and vancomycin #3 Glioblastoma multiforme Neurosurgical consultation appreciated, family does not want surgical intervention at this time #4 History of mental retardation: Stable DVT and GI prophylaxis: SCDs, Protonix Problems: Subjective 24 Hr Interval Summary Subjective hx not possible: pt non-verbal Exam/Review of Systems Vital Signs Vitals Vital Signs Date Time Temp Pulse Resp B/P Pulse Ox O2 Delivery O2 Flow Rate FiO2 05/17/17 12:00 97.5 75 18 119/79 98 Mechanical Ventilator 05/17/17 04:50 30 05/16/17 01:15 10.0 Intake and Output 05/16/17 05/16/17 05/17/17 15:00 23:00 07:00 Intake Total 354.758 ml 258.172 ml 424 ml Output Total 190 ml 185 ml 190 ml Balance 164.758 ml 73.172 ml 234 ml Exam Constitutional: non-verbal ENMT: intubated Respiratory: clear to auscultation Cardiovascular: regular rate and rhythm Gastrointestinal: soft, No distended Musculoskeletal: nl extremities to inspection Results Result Diagram: 05/17/17 0527 05/17/17 0527 Results 24 hrs Laboratory Tests Test 05/17/17 01:05 05/17/17 05:27 Random Vancomycin Level 16.1 White Blood Count 8.9 # Red Blood Count 3.77 #L Hemoglobin 11.8 #L Hematocrit 36.6 #L Mean Corpuscular Volume 97.1 Mean Corpuscular Hemoglobin 31.3 Mean Corpuscular Hemoglobin Concent 32.2 Red Cell Distribution Width 14.6 H Platelet Count 236 # Mean Platelet Volume 11.2 H Neutrophils % 88.5 H Lymphocytes % 6.7 L Monocytes % 4.2 Eosinophils % 0.0 Basophils % 0.0 Nucleated Red Blood Cells % 0.0 Neutrophils # 7.9 H Lymphocytes # 0.6 L Monocytes # 0.4 Eosinophils # 0.0 Basophils # 0.0 Nucleated Red Blood Cells # 0.0 Sodium Level 137 Potassium Level 4.2 Chloride Level 108 # Carbon Dioxide Level 19 L Anion Gap 14 # Blood Urea Nitrogen 19 Creatinine 0.35 L Glucose Level 140 Calcium Level 9.0 Medications Medications Current Medications Acetaminophen (Tylenol Supp) 650 mg Q4H PRN [place] PAIN LEVEL 1-3 OR FEVER; Start 05/16/17 at 03:00 Pantoprazole 40 mg 40 mg DAILY@06 IV Last administered on 05/17/17 06:16; Admin Dose 40 MG; Start 05/16/17 at 06:00 Midazolam HCl 50 ml @ 1 mls/hr TITRATE IV Last administered on 05/16/17 03:39 ; Admin Dose 1 MLS/HR; Start 05/16/17 at 03:00 Fluconazole (Diflucan 400 Mg/ NS (Pmx)) 200 ml @ 100 mls/hr Q24H IVPB Last administered on 05/17/17 05:38; Admin Dose 100 MLS/HR; Start 05/16/17 at 03:00 Dexamethasone 4 mg 4 mg Q6 IV Last administered on 05/17/17 12:16; Admin Dose 4 MG; Start 05/16/17 at 12:00 Propofol 100 ml @ 1.431 mls/ hr Q12H IV Last administered on 05/17/17 06:16; Admin Dose 7.155 MLS/HR; Start 05/16/17 at 18:00 Meropenem/Sodium Chloride 50 ml @ 100 mls/hr Q8 IVPB Last administered on 05/17 12:17; Admin Dose 100 MLS/HR; Start 05/17/17 at 12:00 Vancomycin HCl (Vancocin) 100 ml @ 100 mls/hr Q8H IVPB ; Start 05/17/17 at 18: 00 SUMAN JUAREZ May 17, 2017 14:06
--- NOTE | 2017-05-17 16:52 | RADRPT ---
PROCEDURE: XR Chest. CLINICAL INDICATION: Check PICC line position. TECHNIQUE: Single frontal view. COMPARISON: 05/16/2017. FINDINGS: There is a left arm PICC line with the tip in the lower superior vena cava. The endotracheal tube a nd nasogastric tube remain in satisfactory position. There is mild patchy air space disease bilatera lly in a perihilar distribution. The heart size is normal. There is no pleural effusion. There is no pneumothorax. IMPRESSION: 1. Left arm PICC line tip in satisfactory position. 2. Endotracheal tube and nasogastric tube in satisfactory position. 3. Patchy bilateral perihilar air space disease, unchanged. RPTAT: QQ .Freddie Lane MD, MD Date Time Electronically viewed and signed by .Freddie Lane MD, on 05/17/2017 16:52 .R/
[2017-05-17] MEDS: VANCOMYCIN 500MG/NS (PMX) 100 ML IVPB SCH (17:43)
--- NOTE | 2017-05-17 18:16 | CONS ---
DATE OF ADMISSION: 05/16/2017 DATE OF CONSULTATION: 05/17/2017 REASON FOR CONSULTATION: Ventilator management. HISTORY OF PRESENT ILLNESS: Thank you, Dr. Zaldivar, for this consultation. This is an unfortunate 42-year-old gentleman with a history of glioblastoma multiforme, who presented with altered mental status, previously had been under comfort care per chart. CT of the head showed vasogenic edema with herniation. Patient given hypertonic saline, steroids, and placed on mechanical ventilation. He was evaluated by neurosurgery. Urinalysis also shows UTI and chest x-ray shows bilateral pneumonia. MEDICATIONS: Per chart. ALLERGIES: NONE. PAST MEDICAL HISTORY: Includes glioblastoma multiforme. OBJECTIVE DATA: GENERAL: Chronically ill-appearing gentleman with prior history of neuro surgery, currently sedated. VITAL SIGNS: Temperature 98, pulse is 80, blood pressure 118/85, O2 sat 96 percent, FiO2 of 100 percent. NECK: Supple. No JVD or lymphadenopathy. CARDIAC: S1, S2. No added sounds or murmurs. CHEST: Diminished air entry bilaterally. ABDOMEN: Soft, nontender. No guarding or rebound. EXTREMITIES: No cyanosis, clubbing or edema. NEUROLOGIC: Unable to assess. LABORATORY: White count 8.9, hemoglobin 11.8, platelets of 236, BUN 19, creatinine 0.35. ABG pH 7.33, pCO2 31, pO2 of 237. INR 0.91. Chest x-ray was reviewed. Shows bilateral patchy infiltrates, trace pleural effusions. CT of the brain shows extensive hemispheric vasogenic edema with subfalcine herniation. IMPRESSION: 1. History of glioblastoma. 2. With evidence of herniation. 3. Prior neurosurgical intervention. 4. Hypoxemic respiratory failure. 5. Possible healthcare associated pneumonia. 6. Urinary tract infection. PLAN: 1. Continue with current ventilation. 2. Broad-spectrum antibiotics. 3. Neurosurgery recommendations. 4. Steroids. 5. Palliative care evaluation and/or family conference as overall prognosis is extremely poor. Dictated By: Erick Burgess MD /farida/[place] /Document#: [id number]
[2017-05-17] MEDS: MIDAZOLAM (DRIP) 50 mg/50 mL 50 ML IV SCH (18:25)
--- NOTE | 2017-05-17 18:35 | RADRPT ---
PROCEDURE: Ultrasound guidance for placement of needle in left upper extremity vein. CLINICAL INDICATION: Venous access. TECHNIQUE: Limited sonography of the left upper extremity was performed. Ultrasound images were recorded and s tored in the patient's medical record. COMPARISON: None. FINDINGS: The ultrasound images demonstrate a patent left upper extremity vein. The PICC line was inserted by the PICC line nurse. IMPRESSION: 1. Ultrasound guidance for a needle placement in a left upper extremity vein. 2. The left upper extremity vein is patent. RPTAT: QQ .Freddie Lane MD, MD Date Time Electronically viewed and signed by .Freddie Lane MD, on 05/17/2017 18:35 .R/
[2017-05-18] VITALS (57 sets, daily range): BP systolic 107–149; BP diastolic 79–98; PULSE 44–74; RESP 17–24
[2017-05-18] MEDS: VANCOMYCIN 500MG/NS (PMX) 100 ML IVPB SCH ×2 (01:39→11:27)
[2017-05-18] MEDS: FLUCONAZOLE 400 MG/NS (PMX) 200 ML IVPB SCH (03:18)
[2017-05-18] MEDS: DEXAMETHASONE 4 MG/ML 1 ML INJ IV SCH ×2 (05:40→13:44)
[2017-05-18] MEDS: PROPOFOL 100 ML IV SCH (05:41)
[2017-05-18] MEDS: MEROPENEM 500MG/50 ML (PMX) 50 ML IVPB SCH ×2 (05:41→13:44)
[2017-05-18] MEDS ORDERED: LANSOPRAZOLE 30 MG CAP PO SCH (06:00)
[2017-05-18 06:33] LABS: BASOPHILS % 0.1 % (0.0-2.0); HEMATOCRIT 33.3 % (42.0-52.0); HEMOGLOBIN 11.1 g/dl (14.0-18.0); LYMPHOCYTES # 0.8 10^3/ul (0.8-2.9); LYMPHOCYTES % 7.3 % (15.0-51.0); MEAN CORPUSCULAR HEMOGLOBIN 31.7 pg (29.0-33.0); MEAN CORPUSCULAR HGB CONC 33.3 g/dl (32.0-37.0); MEAN CORPUSCULAR VOLUME 95.1 fl (82.0-101.0); MEAN PLATELET VOLUME 10.3 fl (7.4-10.4); MONOCYTE # 0.9 10^3/ul (0.3-0.9); MONOCYTES % 8.6 % (0.0-11.0); NEUTROPHIL # 8.6 10^3/ul (1.6-7.5); NEUTROPHILS % 83.1 % (39.0-77.0); PLATELET COUNT 349 10^3/UL (140-415); RED CELL DISTRIBUTION WIDTH 14.6 % (11.5-14.5); WHITE BLOOD COUNT 10.3 10^3/ul (4.8-10.8)
[2017-05-18 07:04] LABS: CALCIUM 9.3 mg/dl (8.4-10.2); CREATININE 0.36 mg/dl (0.61-1.24); POTASSIUM 3.4 mmol/L (3.5-5.1)
--- NOTE | 2017-05-18 10:00 | CONS ---
Date/Time of Note Date/Time of Note DATE: 05/18/17 TIME: 09:59 Consult Date/Type/Reason Admit Date/Time May 16, 2017 at 02:35 Initial Consult Date 05/16/17 Type of Consultation: Pulmonary ICU Subjective Remains intubated sedated on mechanical ventilation. Mild agitation of sedation. But not following commands. Objective Vital Signs Date Time Temp Pulse Resp B/P Pulse Ox O2 Delivery O2 Flow Rate FiO2 05/18/17 09:00 68 18 121/98 100 Mechanical Ventilator 05/18/17 08:00 97.0 05/18/17 05:16 30 05/16/17 01:15 10.0 Intake and Output 05/17/17 05/17/17 05/18/17 15:00 23:00 07:00 Intake Total 178.499 ml 224.862 ml 687.5 ml Output Total 35 ml 45 ml 410 ml Balance 143.499 ml 179.862 ml 277.5 ml Exam OBJECTIVE DATA: GENERAL: Chronically ill-appearing gentleman with prior history of neuro surgery, currently sedated. VITAL SIGNS: NECK: Supple. No JVD or lymphadenopathy. CARDIAC: S1, S2. No added sounds or murmurs. CHEST: Diminished air entry bilaterally. ABDOMEN: Soft, nontender. No guarding or rebound. EXTREMITIES: No cyanosis, clubbing or edema. NEUROLOGIC: Unable to assess. Results/Medications Result Diagram: 05/18/17 0550 05/18/17 0550 Results 24 hrs Laboratory Tests Test 05/18/17 05:50 White Blood Count 10.3 Red Blood Count 3.50 L Hemoglobin 11.1 L Hematocrit 33.3 L Mean Corpuscular Volume 95.1 Mean Corpuscular Hemoglobin 31.7 Mean Corpuscular Hemoglobin Concent 33.3 Red Cell Distribution Width 14.6 H Platelet Count 349 # Mean Platelet Volume 10.3 Neutrophils % 83.1 H Lymphocytes % 7.3 L Monocytes % 8.6 Eosinophils % 0.0 Basophils % 0.1 Nucleated Red Blood Cells % 0.0 Neutrophils # 8.6 H Lymphocytes # 0.8 Monocytes # 0.9 Eosinophils # 0.0 Basophils # 0.0 Nucleated Red Blood Cells # 0.0 Sodium Level 138 Potassium Level 3.4 L Chloride Level 106 Carbon Dioxide Level 24 Anion Gap 11 Blood Urea Nitrogen 24 H Creatinine 0.36 L Glucose Level 178 Calcium Level 9.3 Medications Current Medications Acetaminophen 650 mg 650 mg Q4H PRN [place] PAIN LEVEL 1-3 OR FEVER; Start 05/16/17 at 03:00 Midazolam HCl 50 ml @ 1 mls/hr TITRATE IV Last administered on 05/17/17 18:25 ; Admin Dose 1 MLS/HR; Start 05/16/17 at 03:00 Fluconazole (Diflucan 400 Mg/ NS (Pmx)) 200 ml @ 100 mls/hr Q24H IVPB Last administered on 05/18/17 03:18; Admin Dose 100 MLS/HR; Start 05/16/17 at 03:00 Dexamethasone 4 mg 4 mg Q6 IV Last administered on 05/18/17 05:40; Admin Dose 4 MG; Start 05/16/17 at 12:00 Propofol 100 ml @ 1.431 mls/ hr Q12H IV Last administered on 05/18/17 05:41; Admin Dose 1.431 MLS/HR; Start 05/16/17 at 18:00 Meropenem/Sodium Chloride 50 ml @ 100 mls/hr Q8 IVPB Last administered on 05/18 05:41; Admin Dose 100 MLS/HR; Start 05/17/17 at 12:00 Vancomycin HCl (Vancocin) 100 ml @ 100 mls/hr Q8H IVPB Last administered on 01:39; Admin Dose 100 MLS/HR; Start 05/17/17 at 18:00 Lansoprazole (Prevacid) 30 mg DAILY@06 PO Last administered on 05/18/17 05:41 ; Admin Dose 30 MG; Start 05/18/17 at 06:00 IV Flush (NS 10 ml) 10 ml PRN PRN IV IV PROTOCOL; Start 05/17/17 at 18:30 Assessment/Plan Chief Complaint/Hosp Course IMPRESSION: 1. History of glioblastoma. 2. Repeat CT shows evidence of herniation 3. Prior neurosurgical intervention. 4. Hypoxemic respiratory failure secondary to above. 5. Possible healthcare associated pneumonia. 6. Urinary tract infection. PLAN: 1. Continue with current ventilation. 2. Broad-spectrum antibiotics. 3. Neurosurgery recommendations. Patient not surgical candidate. 4. Steroids. 5. Palliative care evaluation and/or family conference as overall prognosis is extremely poor. Recommend family conference prior to CPAP weaning trials and extubation. Would recommend palliative care. Problems: VADGAMA,CYNDY V. MD, [facility] May 18, 2017 10:00
[2017-05-18] MEDS ORDERED: POTASSIUM CHLORIDE 250 ML IVPB ONE (11:00)
--- NOTE | 2017-05-18 12:21 | PN ---
DATE: 05/18/2017 SUBJECTIVE DATA: No events overnight. The patient remains intubated, sedated with Diprivan drip. Looks comfortable. Temperature 97, pulse 69, respirations 18, blood pressure 107/86, saturation 100 on vent. LABORATORY AND DIAGNOSTIC DATA: WBC 10.3. H and H 11.1 and 33.3, platelets 349, neutrophils 83.1, BUN 24, creatinine 0.36. MICROBIOLOGY: Blood cultures remain negative. Urine culture grew E coli, ESBL. INDWELLINGS: Endotracheal tube, NG tube, Gibson, PICC line placed yesterday. ANTIMICROBIALS: The patient is on: 1. Meropenem 2. Vancomycin. 3. Fluconazole. PHYSICAL EXAMINATION: GENERAL: This is a chronically ill-appearing, middle-aged man, who is in no distress. HEENT: Head atraumatic, normocephalic. Sclerae anicteric. Buccal mucosa dry. NECK: Supple. Trachea midline. CHEST: Chest rise symmetrical. Breath sounds diminished at the bases. HEART: S1, S2. ABDOMEN: Soft, bowel sounds hypoactive. EXTREMITIES: Without cyanosis. ASSESSMENT: 1. Septic shock, off pressors. 2. Escherichia coli extended-spectrum beta-lactamase urinary tract infection. 3. Healthcare-associated pneumonia possibly aspiration. Status post intubated. 4. Glioblastoma multiforme. 5. Acute encephalopathy with an evidence of vasogenic edema and herniation per CT scan of the brain, patient remains on Decadron. 6. History of craniotomy. 7. Cachexia. 8. Large bowl like movable mass on the sacrum. PLAN: The patient is hemodynamically stable. Covered with broad- spectrum antibiotics. He is full code. Overall prognosis poor. Dictated By: Rosibel Ramos NP /farida/ /Document#: [id number]
--- NOTE | 2017-05-18 14:43 | PN ---
Date/Time of Note Date/Time of Note DATE: 05/18/17 TIME: 14:41 Assessment/Plan VTE Prophylaxis VTE Prophylaxis Intervention: SCD's Lines/Catheters Urinary Cath still in place: No Assessment/Plan Chief Complaint/Hosp Course #1 Ventilatory dependent respiratory failure: Multifactorial secondary to underlying pneumonia and GBM. Continue respiratory support serial ABGs vent settings as per pulmonary. #2 Septic shock secondary to underlying pneumonia and UTI. Urine culture shows ESBL E. coli ID on the case, continue meropenem and vancomycin #3 Glioblastoma multiforme Neurosurgical consultation appreciated, family does not want surgical intervention at this time After discussion with patient's sister Carter Bass it was decided to change the patients CODE STATUS to DNR and plan is for comfort care, patient to be terminally extubated today and morphine drip to be initiated #4 History of mental retardation: DVT and GI prophylaxis: SCDs, Protonix Problems: Subjective 24 Hr Interval Summary Subjective hx not possible: pt non-verbal Exam/Review of Systems Vital Signs Vitals Vital Signs Date Time Temp Pulse Resp B/P Pulse Ox O2 Delivery O2 Flow Rate FiO2 05/18/17 14:00 58 18 119/81 100 Mechanical Ventilator 05/18/17 12:00 97.3 05/18/17 11:10 30 05/16/17 01:15 10.0 Intake and Output 05/17/17 05/17/17 05/18/17 15:00 23:00 07:00 Intake Total 178.499 ml 224.862 ml 709.931 ml Output Total 35 ml 45 ml 415 ml Balance 143.499 ml 179.862 ml 294.931 ml Exam Constitutional: non-verbal ENMT: intubated Respiratory: clear to auscultation Cardiovascular: regular rate and rhythm Gastrointestinal: soft, No distended Musculoskeletal: nl extremities to inspection Results Result Diagram: 05/18/17 0550 05/18/17 0550 Results 24 hrs Laboratory Tests Test 05/18/17 05:50 White Blood Count 10.3 Red Blood Count 3.50 L Hemoglobin 11.1 L Hematocrit 33.3 L Mean Corpuscular Volume 95.1 Mean Corpuscular Hemoglobin 31.7 Mean Corpuscular Hemoglobin Concent 33.3 Red Cell Distribution Width 14.6 H Platelet Count 349 # Mean Platelet Volume 10.3 Neutrophils % 83.1 H Lymphocytes % 7.3 L Monocytes % 8.6 Eosinophils % 0.0 Basophils % 0.1 Nucleated Red Blood Cells % 0.0 Neutrophils # 8.6 H Lymphocytes # 0.8 Monocytes # 0.9 Eosinophils # 0.0 Basophils # 0.0 Nucleated Red Blood Cells # 0.0 Sodium Level 138 Potassium Level 3.4 L Chloride Level 106 Carbon Dioxide Level 24 Anion Gap 11 Blood Urea Nitrogen 24 H Creatinine 0.36 L Glucose Level 178 Calcium Level 9.3 Medications Medications Current Medications Acetaminophen 650 mg 650 mg Q4H PRN ND PAIN LEVEL 1-3 OR FEVER; Start 05/16/17 at 03:00 Midazolam HCl 50 ml @ 1 mls/hr TITRATE IV Last administered on 05/17/17 18:25 ; Admin Dose 1 MLS/HR; Start 05/16/17 at 03:00 Fluconazole (Diflucan 400 Mg/ NS (Pmx)) 200 ml @ 100 mls/hr Q24H IVPB Last administered on 05/18/17 03:18; Admin Dose 100 MLS/HR; Start 05/16/17 at 03:00 Dexamethasone 4 mg 4 mg Q6 IV Last administered on 05/18/17 13:44; Admin Dose 4 MG; Start 05/16/17 at 12:00 Propofol 100 ml @ 1.431 mls/ hr Q12H IV Last administered on 05/18/17 05:41; Admin Dose 1.431 MLS/HR; Start 05/16/17 at 18:00 Meropenem/Sodium Chloride 50 ml @ 100 mls/hr Q8 IVPB Last administered on 05/18 13:44; Admin Dose 100 MLS/HR; Start 05/17/17 at 12:00 Vancomycin HCl (Vancocin) 100 ml @ 100 mls/hr Q8H IVPB Last administered on 11:27; Admin Dose 100 MLS/HR; Start 05/17/17 at 18:00 Lansoprazole (Prevacid) 30 mg DAILY@06 PO Last administered on 05/18/17 05:41 ; Admin Dose 30 MG; Start 05/18/17 at 06:00 IV Flush 10 ml 10 ml PRN PRN IV IV PROTOCOL; Start 05/17/17 at 18:30 Potassium Chloride 250 ml @ 62.5 mls/hr ONCE ONCE IVPB Last administered on 9 /26/17at 11:27; Admin Dose 62.5 MLS/HR; Start 05/18/17 at 11:00; Stop 05/18/17 at 14:59 Morphine Sulfate/ Sodium Chloride (morphine) 100 ml @ 2 mls/hr TITRATE IV ; Start 05/18/17 at 13:00 Miscellaneous Information (*Rx Drug Level Order Reminder*) VANCO TROUGH @ 0, 100 ON... ONCE ONCE XX ; Start 05/19/17 at 01:00; Stop 05/19/17 at 01:01 SUMAN JUAREZ May 18, 2017 14:43
[2017-05-19] VITALS: BP 140/90; PULSE 49; PULSE 51; RESP 18
[2017-05-19] MEDS: morphine (DRIP) 100 MG/100 ML 100 ML IV SCH ×2 (00:17→13:50)
[2017-05-19 01:00] VITALS: BP 144/88; PULSE 52; PULSE 53; RESP 19
[2017-05-19 02:00] VITALS: BP 139/86; PULSE 45; RESP 17
[2017-05-19 03:30] VITALS: BP 114/67; PULSE 44; RESP 20
[2017-05-19 08:11] VITALS: BP 129/79; RESP 12
--- NOTE | 2017-05-19 13:59 | PN ---
Date/Time of Note Date/Time of Note DATE: 05/19/17 TIME: 13:57 Assessment/Plan VTE Prophylaxis VTE Prophylaxis Intervention: other Assessment/Plan Chief Complaint/Hosp Course #1 Ventilatory dependent respiratory failure-now extubated #2 Septic shock secondary to underlying pneumonia and UTI. Comfort Care #3 Glioblastoma multiforme Plan is for comfort care, hospice consult #4 History of mental retardation: Problems: Subjective 24 Hr Interval Summary Subjective hx not possible: pt non-verbal Exam/Review of Systems Vital Signs Vitals Vital Signs Date Time Temp Pulse Resp B/P Pulse Ox O2 Delivery O2 Flow Rate FiO2 05/19/17 10:05 Nasal Cannula 3.0 05/19/17 08:11 97.4 47 12 129/79 100 05/18/17 23:13 30 Intake and Output 05/18/17 05/18/17 05/19/17 15:00 23:00 07:00 Intake Total 599.931 ml 102.5 ml 32 ml Output Total 40 ml 165 ml 250 ml Balance 559.931 ml -62.5 ml -218 ml Exam Constitutional: non-verbal Respiratory: clear to auscultation Cardiovascular: regular rate and rhythm Gastrointestinal: soft, No distended Musculoskeletal: nl extremities to inspection Results Result Diagram: 05/18/17 0550 05/18/17 0550 Medications Medications Current Medications Morphine Sulfate/ Sodium Chloride (morphine) 100 ml @ 2 mls/hr TITRATE IV Last administered on 05/19/17t 13:50; Admin Dose 7 MLS/HR; Start 05/18/17 at 13:00 SUMAN JUAREZ May 19, 2017 13:59
[2017-05-19] MEDS ORDERED: ACETAMINOPHEN 650 MG SUPP PR PRN (15:00)
[2017-05-19] MEDS ORDERED: ONDANSETRON 4 MG INJ IV PRN (15:00)
[2017-05-19 22:07] VITALS: BP 128/71; RESP 14
--- NOTE | 2017-05-20 03:00 | HP ---
DATE OF ADMISSION: 05/16/2017 LEVEL OF CARE: [facility] primary hospice. DIAGNOSES: 1. Glioblastoma deformity. 2. Comorbid respiratory failure. 3. Aspiration syndrome. 4. Mental retardation. 5. Recent septic shock. HISTORY OF PRESENT ILLNESS: The history is obtained from medical record, as patient is nonverbal. The patient is a 42 gentleman with a history of glioblastoma deformity and mental retardation, who was admitted via the ER from the [facility]. The patient has terminal brain cancer, and the patient also has a history of blindness. The patient was admitted because of altered mental status, fever, and hypoxemia. The patient's O2 sat at [facility] was 82 percent on room air. The patient was intubated in the ER. On CAT scan, the patient had basal actinic edema with herniation. The patient also apparently was septic. Dr. Cho from neurosurgery was called, and the patient was seen by him on 05/16/2017, and he spoke with the patient's primary neurosurgeon, Dr. Yunior Stinson, who stated that the patient's family had previously refused further surgery, including both tumor removal and POKE IN shunt. The patient has a history of recurrent glioblastoma deformities complicated by fungal infection. The patient was also seen by Dr. Shell from infectious standpoint. The patient's sister Ms. Machado was approached by attending physician and patient's code status was changed to DNR. The patient was referred to hospice care to provide comfort care. The patient was then extubated on 05/18/2017, was started on morphine drip, and subsequently referred to hospice for further care. No recent seizures. The patient has not had any fever. The patient has not had any reported vomiting. No reported bleeding of any site. REVIEW OF SYSTEMS: Was limited. The patient is nonverbal. PAST MEDICAL HISTORY: As stated above. ALLERGIES: NONE. SOCIAL HISTORY: Could not be obtained. PAST SURGICAL HISTORY: Patient is status post craniotomy and subsequent cranioplasty. PHYSICAL EXAM: GENERAL: The patient is nonverbal. VITAL SIGNS: Temperature 97.4, pulse 47, respirations 12, blood pressure 129/79, O2 sat 100 percent on 3 L. HEENT: right eye has corneal opacity. Left eye: No eye discharge or redness. Nose and ears are normal. NECK: No mass. CHEST: Diminished air entry at bases and few coarse breath sounds. CVS: S1, S2 normal. Bradycardia. ABDOMEN: Soft and nondistended. EXT: edematous. NEURO: The patient is nonverbal. SKIN : no acute rash LABS: Last labs were done yesterday. WBC 10.2, hemoglobin 9.1, platelets 349. Sodium 138, potassium 3.4, BUN 20, creatinine 0.6. IMPRESSION: 1. Recurrent glioblastoma multiforme 2. Acute respiratory failure. 3. Recent septic shock. 4. History of mental retardation. Details not available. PLAN: The patient will be continued on morphine drip at 7 mg an hour and will be titrated for further comfort care. The patient will also be started on Tylenol 650 q.6 h p.r.n. rectal suppository for pain and fever. We will also use atropine drops for secretion and IV Ativan 0.5 mg q.2 hours p.r.n. for anxiety. The patient remains terminally ill. We will discuss with the family when available. Plan of care discussed with the [facility] nurse, Sienna. Will continue to follow her follow him and optimize comfort care. Dictated By: Yosef Carlson MD /farida/rachel /Document#: [id number] KELSEY
[2017-05-20] MEDS: morphine (DRIP) 100 MG/100 ML 100 ML IV SCH ×3 (04:16→23:26)
[2017-05-20 09:00] VITALS: BP 125/67; RESP 15
[2017-05-20] MEDS: LORAZEPAM 2 MG INJ IV PRN (14:47)
--- NOTE | 2017-05-20 15:36 | DS ---
Date/Time of Note Date/Time of Note DATE: 05/20/17 TIME: 15:31 Discharge Summary Admission/Discharge Info Admit Date/Time May 16, 2017 at 02:35 Discharge Date/Time May 19, 2017 Discharge Diagnosis #1 Ventilatory dependent respiratory failure-now extubated #2 Septic shock secondary to underlying pneumonia and UTI. Comfort Care #3 Glioblastoma multiforme Plan is for comfort care, hospice consult #4 History of mental retardation: Patient Condition: Guarded Hospital Course Patient is a 42-year-old male history of terminal brain cancer who sent from a [facility] for altered mental status, hypoxia, and fever, in the ER patient was found to have signs of vasogenic edema with herniation from a mass on head CT. He was given a dose of hypertonic saline and Decadron. Neurosurgery was consulted, family did not want any surgical intervention. Patient was intubated and monitored in ICU, after discussion with family about patient's prognosis is decided to terminally extubate and place patient on comfort care. Patient was admitted to inpatient hospice with [facility]. Home Meds Reported Medications Hydrocodone/Acetaminophen (Opelika 5-325 Tablet) 1 Each Tablet, 1 EACH PO Q4 Y for SEVERE PAIN LEVEL 7-10, TAB 05/16/17 Levetiracetam* (Keppra*) 500 Mg Tablet, 500 MG PO BID, TAB 05/16/17 Phenytoin* Sodium Extended (Dilantin*) 200 Mg Capsule, 200 MG PO Q12, CAP 05/16/17 Dexamethasone* (Dexamethasone*) 2 Mg Tablet, 2 MG PO Q6, TAB 05/16/17 Aspirin* (Aspirin* EC) 81 Mg Tablet.dr, 81 MG PO DAILY, TAB 05/16/17 Simvastatin* (Zocor*) 10 Mg Tablet, 10 MG PO QHS, #30 TAB 05/16/17 Pantoprazole* (Pantoprazole*) 40 Mg Tablet.dr, 40 MG PO DAILY, TAB 05/16/17 Bacitracin* (Bacitracin Oint (UD)*) 1 Applic Oint, 1 APPLIC TOP DAILY, PKT APPLY TO 05/16/17 Docusate Sodium* (Docusate Sodium*) 100 Mg Capsule, 100 MG PO BID, #60 CAP HOLD FOR LOOSE BOWEL MOVEMENT 05/16/17 Follow-up Plan Follow-up with hospice Primary Care Provider Not On Staff Doctor Time spent on discharge: > 30 minutes SUMAN JUAREZ May 20, 2017 15:36
[2017-05-20 17:09] VITALS: PULSE 126
[2017-05-20 20:00] VITALS: BP 113/66; RESP 18
--- NOTE | 2017-05-20 20:22 | PN ---
DATE: 05/20/2017 SUBJECTIVE: Level of care [facility] PRIMARY DIAGNOSIS: Glioblastoma multiforme and recent respiratory failure. INTERVAL HISTORY: Patient continues to decline and due to pain and shortness of breath, his morphine dose has been slowly increased to 10 mg an hour. Patient does have occasional apneic episodes. No reported fever. No reported breakthrough seizure. Patient remains tachycardic, however, able to maintain adequate blood pressure. OBJECTIVE DATA: Temperature 98.3, pulse 136, respiration 15 with periods of apnea. Patient remains totally unresponsive to verbal or tactile stimuli. Patient also received Ativan for possible anxiety leading to tachycardia. Plan of care discussed with nursing staff at [facility], as well as [facility] nurse Garcia. Patient remains appropriate for [facility] level of care and remains terminally ill. Family is currently not available. Patient has a sister who lives in [facility]. Will update her when she is available. Dictated By: Yosef Carlson MD /farida/benjamín /Document#: [id number]
[2017-05-21 02:00] VITALS: BP 136/87; RESP 18
[2017-05-21] MEDS: morphine (DRIP) 100 MG/100 ML 100 ML IV SCH ×2 (05:17→12:43)
[2017-05-21 08:32] VITALS: BP 149/81; RESP 12
[2017-05-21] MEDS: HYDROmorphONE 50 MG in DEXTROSE 5% 45 ML IV SCH (18:21)
[2017-05-21 20:00] VITALS: BP 126/77; RESP 12
[2017-05-22 02:00] VITALS: BP 153/81; RESP 12
[2017-05-22 08:05] VITALS: BP 123/88; RESP 14
[2017-05-22] MEDS: HYDROmorphONE 50 MG in DEXTROSE 5% 45 ML IV SCH (08:06)
[2017-05-22] MEDS: ATROPINE 1% 5 ML OPH SL PRN (09:11)
--- NOTE | 2017-05-22 12:59 | PN ---
Date/Time of Note Date/Time of Note DATE: 05/22/17 TIME: 12:58 Assessment/Plan VTE Prophylaxis VTE Prophylaxis Intervention: other Lines/Catheters IV Catheter Type (from Nrsg): PICC Line Central line still needed: Yes Urinary Cath still in place: Yes Reason Cath still needed: skin wounds contaminated by urine Assessment/Plan Chief Complaint/Hosp Course 1) GBM with herniation - on hospice care Problems: Subjective 24 Hr Interval Summary Free Text/Dictation Patient resting, not in distress but not responsive Exam/Review of Systems Vital Signs Vitals Vital Signs Date Time Temp Pulse Resp B/P Pulse Ox O2 Delivery O2 Flow Rate FiO2 05/22/17 08:05 98.4 94 14 123/88 97 05/22/17 05:04 3.0 05/21/17 08:30 Nasal Cannula 05/18/17 23:13 30 Intake and Output 05/21/17 05/21/17 05/22/17 15:00 23:00 07:00 Intake Total 86 ml 70 ml Output Total 200 ml 450 ml Balance 86 ml -130 ml -450 ml Exam Constitutional: frail Head: atraumatic, normocephalic Neck: supple Respiratory: diminished breath sounds Cardiovascular: regular rate and rhythm Gastrointestinal: non-tender, soft Extremities: normal pulses Results Result Diagram: 05/18/17 0550 05/18/17 0550 Medications Medications Current Medications Atropine Sulfate (Atropine 1% Oph) 2 drop Q2H PRN SL DRY SECRETIONS Last administered on 05/22/17 09:11; Admin Dose 2 DROP; Start 05/19/17 at 15:00 Lorazepam (Ativan) 0.5 mg Q2 PRN IV Anxiety Last administered on 05/20/17 14: 47; Admin Dose 0.5 MG; Start 05/19/17 at 15:00 Ondansetron HCl (Zofran Inj) 4 mg Q6H PRN IV NAUSEA AND/OR VOMITING; Start at 15:00 Acetaminophen 650 mg 650 mg Q6H PRN MD pain and fever Last administered on 05/22 02:20; Admin Dose 650 MG; Start 05/19/17 at 15:00 Hydromorphone HCl/ Dextrose (Dilaudid/D5W) 50 ml @ 0 mls/hr TITRATE IV Last administered on 05/22/17 08:06; Admin Dose 2.5 MLS/HR; Start 05/21/17 at 18:00 MARIANA CARRILLO May 22, 2017 12:59
--- NOTE | 2017-05-22 13:08 | PN ---
DATE: 05/21/2017 PRIMARY DIAGNOSES: Glioblastoma multiforme, and recent resp fialure SUBJECTIVE DATA: The patient since yesterday has continued decline and has become progressively more unresponsive. The patient did have shortness of breath and tachycardia and morphine dose has been increased to up to 40 mg an hour. The patient remains non-responsive. The patient is beginning to have low- grade temperature. No reported seizure. No reported vomiting. No reported abdominal distention. The patient does have edema in all extremities. The patient is unresponsive. OBJECTIVE DATA: VITAL SIGNS: Temperature 99.4, pulse 100, respiration 12, blood pressure 126/77. O2 saturation 99 percent. HEENT: No eye discharge or redness. Normal motion. NECK: No mass. LUNGS: Chest diminished air entry at bases. Few scattered coarse breath sounds. HEART: CVS is normal. No murmur. ABDOMEN: Soft, nondistended, and nontender. EXTREMITIES: Edematous. No clubbing, cyanosis. NEURO: The patient is nonverbal. IMPRESSION: Glioblastoma multiforme. PLAN: The patient will be switched from morphine to Dilaudid, we will start him on 2.5 mg an hour and titrate by 0.5 mg every hour to optimize comfort care. The patient meanwhile will be continued on Ativan for anxiety and will continue on atropine drops for secretion, and Zofran for the vomiting. The patient remains terminally ill and also remains appropriate for hospice care. Dictated By: Yosef Carlson MD /farida/kevin /Document#: [id number] KELSEY
[2017-05-22 14:23] VITALS: BP 130/75; RESP 12
[2017-05-22 20:48] VITALS: BP 131/80; RESP 16
[2017-05-23] MEDS: HYDROmorphONE 50 MG in DEXTROSE 5% 45 ML IV SCH ×2 (02:45→22:51)
[2017-05-23 08:21] VITALS: BP 130/63; RESP 17
[2017-05-23] MEDS: ATROPINE 1% 5 ML OPH SL PRN ×4 (10:03→22:51)
--- NOTE | 2017-05-23 11:20 | PN ---
Date/Time of Note Date/Time of Note DATE: 05/23/17 TIME: 11:19 Assessment/Plan VTE Prophylaxis VTE Prophylaxis Intervention: other Lines/Catheters IV Catheter Type (from Nrsg): PICC Line Central line still needed: Yes Urinary Cath still in place: Yes Reason Cath still needed: skin wounds contaminated by urine Assessment/Plan Chief Complaint/Hosp Course 1) GBM with herniation - on hospice care Problems: Subjective 24 Hr Interval Summary Free Text/Dictation Patient is resting, appears comfortable Exam/Review of Systems Vital Signs Vitals Vital Signs Date Time Temp Pulse Resp B/P Pulse Ox O2 Delivery O2 Flow Rate FiO2 05/23/17 08:21 95.8 77 17 130/63 96 05/23/17 08:00 Nasal Cannula 3.0 Intake and Output 05/22/17 05/22/17 05/23/17 15:00 23:00 07:00 Intake Total 50 ml 0 ml 57.5 ml Output Total 250 ml 600 ml Balance 50 ml -250 ml -542.5 ml Exam Constitutional: frail, well developed Head: atraumatic, normocephalic Neck: supple Respiratory: diminished breath sounds Cardiovascular: regular rate and rhythm Gastrointestinal: non-tender, soft Extremities: normal pulses Medications Medications Current Medications Atropine Sulfate (Atropine 1% Oph) 2 drop Q2H PRN SL DRY SECRETIONS Last administered on 05/23/17 10:03; Admin Dose 2 DROP; Start 05/19/17 at 15:00 Lorazepam (Ativan) 0.5 mg Q2 PRN IV Anxiety Last administered on 05/20/17 14: 47; Admin Dose 0.5 MG; Start 05/19/17 at 15:00 Ondansetron HCl (Zofran Inj) 4 mg Q6H PRN IV NAUSEA AND/OR VOMITING; Start at 15:00 Acetaminophen 650 mg 650 mg Q6H PRN [place] pain and fever Last administered on 05/22 02:20; Admin Dose 650 MG; Start 05/19/17 at 15:00 Hydromorphone HCl/ Dextrose (Dilaudid/D5W) 50 ml @ 0 mls/hr TITRATE IV Last administered on 05/23/17 02:45; Admin Dose 2.5 MLS/HR; Start 05/21/17 at 18:00 MARIANA CARRILLO May 23, 2017 11:20
[2017-05-23 16:27] VITALS: BP 149/94; RESP 18
[2017-05-23 20:45] VITALS: BP 129/80; RESP 16
[2017-05-23] MEDS: ARTIFICIAL TEARS 15 ML OPH BOTH EYES PRN (22:51)
[2017-05-23] MEDS: DIMETHICONE STICK TOP PRN (22:51)
[2017-05-24 02:45] VITALS: BP 132/88; RESP 16
[2017-05-24 07:42] VITALS: BP 128/88; RESP 16
[2017-05-24 14:57] VITALS: BP 128/69; RESP 18
[2017-05-24] MEDS: HYDROmorphONE 50 MG in DEXTROSE 5% 45 ML IV SCH (18:05)
[2017-05-24 20:54] VITALS: BP 120/67; RESP 19
[2017-05-25 02:00] VITALS: BP 132/86; RESP 19
--- NOTE | 2017-05-25 06:58 | PN ---
DATE: 05/24/2017 SUBJECTIVE DATA: Terminal diagnosis : glioblastoma multiforme and recent acute respiratory failure. The patient has continued to decline and this morning, patient was noted to be moaning and moaning, and was already on Dilaudid 2.5 mg/hour which has been now increased to 3 mg an hour. The patient is lethargic but occasionally blinks spontaneously. No fever or chills. No reported seizures. Urine output has decreased. The patient also has no reported seizure or vomiting. OBJECTIVE DATA: GENERAL: Found patient to be lethargic. VITAL SIGNS: Temperature 97.9, pulse 92, respiration 18, blood pressure 108/69, O2 sat 96 percent on 2 liters. NECK: No mass. CHEST: Few coarse breath sounds. HEART: Essentially normal. No murmur. ABDOMEN: Soft, nontender. EXTREMITIES: Decreased edema. NEURO: Patient is lethargic. Makes examination impossible. The patient appears cachectic. Weight in the hospital was only 47.7 kg. IMPRESSION: Glioblastoma multiforme with recent acute respiratory failure. Continue IV Dilaudid at 3 mg/hr and titrate up for comfort care. The patient received four doses of atropine drops yesterday Continue to optimize comfort care. [facility], as well as patient's nurse at [facility]. I tried to contact the patient's DPEmmy CRISTINA at [phone] but was unable to contact. Dictated By: Yosef Carlson MD /farida/barb /Document#: [id number] TARAD
[2017-05-25 07:25] VITALS: BP 113/69; RESP 16
[2017-05-25] MEDS: LORAZEPAM 2 MG INJ IV PRN (09:56)
[2017-05-25] MEDS ORDERED: HYDROmorphONE 2 MG/ML SYG IV PRN (12:00)
[2017-05-25] MEDS: LORAZEPAM 2 MG INJ IV SCH ×2 (12:26→18:09)
[2017-05-25] MEDS: HYDROmorphONE 50 MG in DEXTROSE 5% 45 ML IV SCH (12:27)
[2017-05-25 14:06] VITALS: BP 133/84; RESP 16
--- NOTE | 2017-05-25 18:06 | PN ---
DATE: 05/25/2017 LOCATION: [facility] LEVEL OF CARE: [facility]. PRIMARY DIAGNOSIS: Gliablastoma multiforme and recent respiratory failure due to septic shock. HISTORY OF PRESENT ILLNESS: Patient was noted to be increasing short of breath and was moaning. Therefore, Dilaudid dose has been increased up to 5 mg an hour. Patient also has been started on Dilaudid 3 mg every 6 hours for breakthrough pain. Patient also appeared anxious earlier and therefore patient will be started on Ativan 1 mg every 6 hours around the clock, and 0.5 mg every 2 hours p.r.n. Patient continues to have diminished urine output. No reported seizure. No reported fever. Patient does have occasional cough. PHYSICAL EXAMINATION: GENERAL: Patient to be lethargic. VITAL SIGNS: Temperature 98.2, pulse 72, respirations 16, blood pressure 133/84, O2 sat 100 percent on 2 L nasal cannula. HEENT: No eye or ear discharge. NECK: No mass. No JVD. CHEST: A few coarse breath sounds anteriorly. HEART: Normal. No murmur. ABDOMEN: Soft, nontender. EXTREMITIES: Trace edema. NEURO: Patient is lethargic. IMPRESSION: 1. Glioblastoma multiforme. 2. Recent respiratory failure. 3. Mental retardation. PLAN: Patient will be continued on Dilaudid at 5 mg an hour, which was increased this morning and will be also started on IV Ativan 1 mg every 6 hours around the clock as described above. Patient remains terminally ill and remains appropriate for [facility] level of care. [facility], as well as the [facility] nursing staff, Karen. Dictated By: Yosef Carlson MD /farida/benjamín /Document#: [id number]
[2017-05-25 20:00] VITALS: BP 123/77; RESP 21
[2017-05-26] MEDS: LORAZEPAM 2 MG INJ IV SCH ×4 (00:26→17:17)
[2017-05-26] MEDS: HYDROmorphONE 50 MG in DEXTROSE 5% 45 ML IV SCH ×3 (01:30→20:51)
[2017-05-26 02:00] VITALS: BP 112/73; RESP 19
[2017-05-26 08:00] VITALS: BP 124/62; RESP 18
[2017-05-26 14:00] VITALS: BP 105/64; RESP 20
--- NOTE | 2017-05-26 17:33 | PN ---
DATE: 05/26/2017 LEVEL OF CARE: [facility]. PRIMARY DIAGNOSIS: Glioblastoma multiforme comorbid, recent acute respiratory failure and sepsis. SUBJECTIVE: The patient since yesterday has continued to decline and O2 sat has dropped into 80s. Patient has shallow respirations in the 20s. The patient also has increasing tachycardic. The daren ent did not have any seizure, no reported fever. No reported abdominal distention, no reported vomi ting. PHYSICAL EXAMINATION: GENERAL: The patient is nonverbal. VITAL SIGNS: Temperature 98.7, pulse 133, respirations 28, blood pressure 124/62. NECK: No mass. CHEST: Revealed coarse breath sounds. CARDIOVASCULAR: S1, S2 normal. Sinus tachycardia. ABDOMEN: Soft, nondistended. EXTREMITIES: Trace edema. NEUROLOGIC: The patient is nonverbal. IMPRESSION: Glioblastoma multiforme. PLAN: Patient's Dilaudid dose has been increased to 6 mg an hour. The patient did require 1 dose o f Dilaudid yesterday. The patient's anxiety is well controlled with IV, 1 mg q. 6h. around the [facility] k. The patient required only 1 dose of breakthrough Ativan. The patient remains terminally ill and will continue to optimize comfort care. Plan of care discussed with nurse Garcia. The patient remains terminally ill and appropriate for [facility] level of hospice care. Dictated By: INEZ RAI/VIJAY Conf#: [id number] DID#: [id number]
[2017-05-26 21:22] VITALS: BP 107/69; RESP 21
[2017-05-27] MEDS: LORAZEPAM 2 MG INJ IV SCH ×4 (00:26→17:50)
[2017-05-27 03:38] VITALS: BP 94/51; RESP 20
[2017-05-27] MEDS: HYDROmorphONE 50 MG in DEXTROSE 5% 45 ML IV SCH ×3 (03:45→18:42)
[2017-05-27 08:00] VITALS: BP 102/65; RESP 18
[2017-05-27 14:00] VITALS: BP 112/69; RESP 35
[2017-05-27] MEDS: ARTIFICIAL TEARS 15 ML OPH BOTH EYES PRN (17:52)
[2017-05-27] MEDS: DIMETHICONE STICK TOP PRN (17:52)
[2017-05-27 19:40] VITALS: BP 109/73; RESP 20
[2017-05-27] MEDS: LORAZEPAM 2 MG INJ IV PRN (22:10)
[2017-05-28] MEDS: LORAZEPAM 2 MG INJ IV SCH ×4 (00:57→19:26)
[2017-05-28 02:07] VITALS: BP 115/72; RESP 20
[2017-05-28] MEDS: HYDROmorphONE 50 MG in DEXTROSE 5% 45 ML IV SCH ×4 (02:36→22:01)
--- NOTE | 2017-05-28 07:43 | PN ---
DATE: 05/27/2017 LEVEL OF CARE: [facility]. PRIMARY HOSPITAL DIAGNOSIS: Glioblastoma multiforme. SUBJECTIVE AND INTERVAL HISTORY: The patient has become progressively more unresponsive. The patie nt was short of breath and therefore, Dilaudid dose has been increased to 6.5 mg. Patient also had anxiety and tachypnea and received p.r.n. Ativan in addition to scheduled dose of IV Ativan. The pa tient at the time of my examination was still short of breath and therefore, Dilaudid has been incre ased to 7 mg an hour. The patient did have a low grade temperature and remained tachycardic. The p atient also is unresponsive. No reported vomiting or diarrhea. No reported bleeding from any site. PHYSICAL EXAMINATION: GENERAL: The patient is nonverbal. VITAL SIGNS: Temperature 99.9, pulse 133, respirations 18, blood pressure 102/65, O2 saturation 96% on 3 liters nasal cannula. NECK: No mass. CHEST: Revealed coarse breath sounds. CARDIOVASCULAR: S1, S2 normal. Sinus tachycardia. ABDOMEN: Soft, nondistended. EXTREMITIES: No edema. No clubbing or cyanosis. NEUROLOGIC: The patient is nonverbal. IMPRESSION: Glioblastoma multiforme. Continue Dilaudid at 6.5 mg an hour and Ativan 1 mg IV q.6 ho urs around the clock and p.r.n. Continue breakthrough Dilaudid as needed. The patient is terminall y ill. Plan of care discussed with the nurse Jose as well as nursing staff at [facility]. Dictated By: INEZ RAI/VIJAY Conf#: [id number] DID#: [id number]
[2017-05-28 08:00] VITALS: BP 108/64; RESP 32
[2017-05-28] MEDS: LORAZEPAM 2 MG INJ IV PRN ×2 (08:24→21:47)
[2017-05-28 14:00] VITALS: BP 110/66; RESP 20
[2017-05-28 22:28] VITALS: BP 107/70; RESP 12
[2017-05-29] MEDS: LORAZEPAM 2 MG INJ IV SCH ×4 (02:32→17:43)
[2017-05-29] MEDS: HYDROmorphONE 50 MG in DEXTROSE 5% 45 ML IV SCH ×4 (03:36→22:35)
[2017-05-29 08:15] VITALS: BP 114/78; RESP 28
[2017-05-29 20:08] VITALS: BP 103/60; RESP 24
[2017-05-30] MEDS: LORAZEPAM 2 MG INJ IV SCH ×2 (01:37→05:33)
[2017-05-30] MEDS: HYDROmorphONE 50 MG in DEXTROSE 5% 45 ML IV SCH ×2 (02:53→08:02)
[2017-05-30] MEDS: LORAZEPAM 2 MG INJ IV PRN (08:13)
[2017-05-30 08:29] VITALS: BP 62/26; RESP 51
--- NOTE | 2017-05-30 18:21 | PN ---
DATE: 05/28/2017 LEVEL OF CARE: [facility] GENERAL HISTORY: Diagnosis is glioblastoma multiforme and respiratory failure. The patient continu es to decline. The patient is requiring frequent Ativan for anxiety, in addition to around the cloc k dose. The patient also was experiencing shortness of breath and therefore, Dilaudid dose has been increased to 8 mg an hour. The patient continues to have tachycardia and is nonresponsive to verbal and tactile stimuli. The p atient's respiratory rate was in the 30s to low 40s, and after increasing Dilaudid, it has come down into mid 20s. The patient also has evidence of mottling in both upper and lower extremities. PHYSICAL EXAMINATION: GENERAL: The patient is nonverbal. VITAL SIGNS: Temperature 98.8, pulse 130, respirations 32, blood pressure 108/64, O2 saturation 96% on 3 liters nasal cannula. HEENT: No eye discharge or redness. NECK: No mass. CHEST: Coarse breath sounds bilaterally. CARDIOVASCULAR: Sinus tachycardia. ABDOMEN: Soft, nondistended. EXTREMITIES: Mottling. NEUROLOGIC: The patient is nonverbal. IMPRESSION: 1. Glioblastoma multiforme. 2. Respiratory failure. 3. Anxiety. PLAN: As mentioned above, the patient will be continued on Dilaudid 8 mg an hour and Ativan 1 mg q. 6h. around the clock, as well as q.2h. p.r.n. The patient remains critically ill and remains approp riate for [facility] level of care. Plan of care discussed with desk nurse as well as nursing staff at [facility]. Dictated By: INEZ RAI/VIJAY Conf#: [id number] DID#: [id number]
--- NOTE | 2017-05-31 06:02 | PN ---
DATE: 05/29/2017 PRIMARY HOSPITAL DIAGNOSIS: Glioblastoma multiforme. LEVEL OF CARE: [facility]. SUBJECTIVE AND INTERVAL HISTORY: The patient continues to decline, and for treatment of shortness o f breath, the patient's Dilaudid dose has been increased to 9.5 mg/hour. The patient is noted to cooper ve irregular breathing and has occasional periods of apnea. No vomiting. No seizure. No temperatu re spike. The heart rate has been down from 130s, now into mid 80s. PHYSICAL EXAMINATION GENERAL: The patient unresponsive. VITAL SIGNS: Blood pressure 114/78, respirations 28, pulse 88, temperature 97.6, O2 saturation 90% on 3 liters. NECK: No mass. CHEST: Scattered coarse breath sounds. CARDIOVASCULAR: Regular rate and rhythm. ABDOMEN: Soft, nondistended. EXTREMITIES: No edema. Mottling present. IMPRESSION 1. Glioblastoma multiforme. 2. Recent respiratory failure. PLAN: As mentioned above, Dilaudid dose has been increased to 9.5 mg/hour. The patient had receive d 2 doses of IV Ativan 1 mg since this morning. The patient remains terminally ill. We will contin ue to optimize comfort care. The patient remains for hospice care. Dictated By: INEZ RAI/VIJAY Conf#: [id number] DID#: [id number] CC: FLORIDA DOLL MD;*EndCC*
--- NOTE | 2017-05-31 08:54 | DES ---
DATE OF ADMISSION: 05/16/2017 DATE OF : 05/30/2017 CAUSE OF : Glioblastoma multiforme, comorbid acute respiratory failure, recent sepsis. REASON FOR ADMISSION AND HOSPITAL COURSE: The patient was a 42-year-old gentleman with history of g lioblastoma multiforme, mental retardation, and blindness. The patient was recently admitted at [facility] due to altered mental status, fever and hypoxemia. The patient was intuba sridevi and the patient was seen by neurosurgery and was thought not to be a candidate for further inter vention. The patient's family requested comfort care and hospice. Patient was subsequently extubat ed and was started initially a morphine drip which was switched to IV Dilaudid. The patient doses w ere escalated to control terminal symptoms. The patient also received around the clock Ativan. The patient progressively became nonverbal. This morning, patient became progressively hypotensive and had a blood pressure of 62/26 and subsequently at 9:55 a.m. patient was found unresponsive with no blood pressure, pulse or respirations. The patient was pronounced at 9:55 a.m. on 05/31/2017. The patient's sister, Carter, was notified and she will apparently notify her sister, Emmy. [facility] has been contacted and the patient's fa richi requested to keep the watch on. Dictated By: INEZ RAI/VIJAY Conf#: [id number] DID#: [id number]
== END 2017-05-30 10:09 | disposition expired | DRG 871 ==
LOC: E/R 22:08 → ICU 05-16 02:35 → PP2 05-19 04:00
PROVIDERS: ADMIT Family Medicine; ATTEND Internal Medicine
PROC: 5A1945Z Respiratory Ventilation, 24-96 Consecutive Hours (ICD-10-PCS; principal; 2017-05-16)
PROC: 0BH17EZ Insertion of Endotracheal Airway into Trachea, Via Natural or Artificial Opening (ICD-10-PCS; 2017-05-16)
PROC: 02HV33Z Insertion of Infusion Device into Superior Vena Cava, Percutaneous Approach (ICD-10-PCS; 2017-05-17)
PROC: 0BP1XDZ Removal of Intraluminal Device from Trachea, External Approach (ICD-10-PCS; 2017-05-19)
DX: A41.9 Sepsis, unspecified organism (principal); G93.5 Compression of brain; J96.01 Acute respiratory failure with hypoxia; R65.21 Severe sepsis with septic shock; J69.0 Pneumonitis due to inhalation of food and vomit; R64 Cachexia; G93.40 Encephalopathy, unspecified; C71.9 Malignant neoplasm of brain, unspecified; N39.0 Urinary tract infection, site not specified; Z68.1 Body mass index [BMI] 19.9 or less, adult; E87.2 Acidosis; F79 Unspecified intellectual disabilities; B96.20 Unspecified Escherichia coli [E. coli] as the cause of diseases classified elsewhere; R40.2431 Glasgow coma scale score 3-8, in the field [EMT or ambulance]; Z16.12 Extended spectrum beta lactamase (ESBL) resistance; Z66 Do not resuscitate; Z51.5 Encounter for palliative care
CPT/HCPCS: 31500; 36415; 36569; 36600; 70450; 71010; 76937; 80048; 80053; 80202; 81001; 82803; 83605; 84484; 85025; 85610; 85730; 87040; 87081; 87086; 93005; 94002; 94003; 94770; 96365; 96366; 96368; 96375; 96376; C9113; J0692; J1100; J1450; J2060; J2185; J2270; J3370; J3480; J7030; J7999